=== PATIENT | male | born 1950 | race Caucasian/White ===

== ENCOUNTER → 2016-05-29 | Outpatient (CLI) | payer BC ==
[~2016-05-29] MED LIST: ADVIN25050 INH; ASPEC81 PO; FLV1 PO; MULT-589 PO; THM100 PO; TIOTCAP INH
--- NOTE | 2016-05-29 10:30 | DIAGNOSTIC IMAGING REPORT ---
CHEST 2 VIEWS ROUTINE CLINICAL HISTORY: Z00.00 Health [id number] Chronic obstructive pulmonary dis COMPARISON STUDY: 06/07/2013 FINDINGS: The patient appears hyperinflated. The heart is normal in size. There is no failure. There is no focal pulmonary consolidation. There are no significant pleural effusions.[ IMPRESSION: Emphysematous configuration of the chest. No acute findings. Electronically signed by: Sesar Huffman M.D. 05/29/2016 10:28 AM Dictated Date/Time: 05/29/2016 10:28 AM
[2016-05-29 11:15] LABS: BASO % 0.4 %; BASO ABS # 0.03 K/uL (0-0.2); COMPLETE YES; EOS % 1.1 %; HEMATOCRIT 42.8 % (42-52); IG% 0.1 %; LYMPH % 12.1 %; LYMPH ABS # 0.98 K/uL (1.2-3.4); MEAN CELL VOLUME 96.6 fL (80-100); MEAN CORPUSCULAR HEMOGLOBIN 33.4 pg (25-34); MEAN CORPUSCULAR HGB CONC 34.6 g/dl (32-36); MEAN PLATELET VOLUME 9.1 fL (7.4-10.4); MONO % 7.4 %; NEUT % 78.9 %; PLATELET COUNT 249 K/uL (130-400); RED BLOOD COUNT 4.43 M/uL (4.7-6.1); WHITE BLOOD COUNT 8.12 K/uL (4.8-10.8)
[2016-05-29 11:28] LABS: ALT/SGPT 23 U/L (12-78); AST/SGOT 15 U/L (15-37); BLOOD UREA NITROGEN 17 mg/dl (7-18); BUN/CREATININE RATIO 19.6 (10-20); CALCIUM 8.8 mg/dl (8.5-10.1); CARBON DIOXIDE 28 mmol/L (21-32); CHLORIDE 103 mmol/L (98-107); CREATININE 0.89 mg/dl (0.60-1.40); GLUCOSE 98 mg/dl (70-99); POTASSIUM 4.3 mmol/L (3.5-5.1); SODIUM 139 mmol/L (136-145)
[2016-05-29 11:31] LABS: ALB/GLOB RATIO 1.1 (0.9-2); ALKALINE PHOSPHATASE 64 U/L (45-117)
== END | disposition home or self-care (01) ==
LOC: C.RAD1850 10:08
PROVIDERS: ATTEND Internal Medicine Pulmonary Disease
DX: Z00.00 Encounter for general adult medical examination without abnormal findings (principal); J44.9 Chronic obstructive pulmonary disease, unspecified; I27.2 Other secondary pulmonary hypertension; I50.9 Heart failure, unspecified

== ENCOUNTER 2017-04-10 17:37 | Inpatient (IN) | payer OTHER ==
[~2017-04-10] VITALS: Ht 172.7 cm; Wt 55.5 kg
[2017-04-10] MEDS ORDERED: ASPIRIN 81 MG CHEW PO STA (17:53)
--- NOTE | 2017-04-10 18:25 | EMERGENCY ROOM VISIT NOTE ---
History Report prepared by Shaheedibsandip: Jan Roach Under the Supervision of: Dr. Deejay oCrdoba M.D. First contact with patient: 17:49 Chief Complaint: SHORTNESS OF BREATH Stated Complaint: SOB,LOWER EXTREMITY,SWELLING/EDEMA Nursing Triage Summary: Last few days pt developed BLE edema and shortness of breath. Hx cor pulmonale. History of Present Illness The patient is a 66 year old male who presents to the Emergency Room with complaints of resolved shortness of breath that began a couple of weeks ago. The patient states that he has a history of cor pulmonale. The patient states that over the last couple of weeks his shortness of breath worsened. He reports that he has been experiencing worsening bilateral lower extremity edema that began a couple of days ago. The patient is accompanied by his who states that the patient she noticed his legs worsened tonight, which cause her to bring him to the ED. The patient states that he has also been coughing more, which he reports is intermittently productive. He states he has also been experiencing diarrhea. He reports that since his symptoms have worsened, he started to wear oxygen at all times. He states that he is currently not short of breath. The patient states that his pulse ox is typically low. He denies fevers, chills, coughing up blood, nausea, vomiting, blood in his stools, hematuria, and recent travel. Source of History: patient Onset: a couple of days ago Position: other (global) Quality: other (global) Timing: resolved Associated Symptoms: + cough, + diarrhea, No fevers, No chills, No nausea, No vomiting, No melena, No hematochezia, No urinary symptoms Note: Associated symptoms: lower extremity swelling Review of Systems See HPI for pertinent positives and negatives. A total of ten systems were reviewed and were otherwise negative. Past Medical & Surgical Medical Problems: (1) Edema, pitting (2) No Known Active Medical Problems (3) Pitting edema Family History Cancer MOTHER Social History Smoking Status: Former Smoker Alcohol Use: occasionally Marital Status: Housing Status: lives with family Occupation Status: employed Current/Historical Medications Scheduled Aspirin (Aspirin Ec), 81 MG PO DAILY Budesonide/Formoterol Fumarate (Symbicort 160/4.5 Inhaler ), 2 PUFFS INH BID Folic Acid (Folvite), 1 MG PO QAM Home O2 Therapy (Oxygen), 1 LITER NA CONTINOUS Hydrochlorothiazide (Hydrochlorothiazide), 12.5 MG PO DAILY Multiple Vitamin (Daily Vadim), 1 TAB PO DAILY Tamsulosin Hcl (Flomax), 0.4 MG PO DAILY Tiotropium [place] (Spiriva Handihaler), 1 CAP INH DAILY Allergies Coded Allergies: No Known Allergies (Unverified , 06/06/13) Physical Exam Vital Signs Date Time Temp Pulse Resp B/P (MAP) Pulse Ox O2 Delivery O2 Flow Rate FiO2 04/10/17 22:11 109 20 105/69 96 Nasal Cannula 3.0 04/10/17 21:43 108 20 102/65 95 Nasal Cannula 3.0 04/10/17 21:03 108 20 109/62 97 Nasal Cannula 3.0 04/10/17 19:52 93 20 103/66 95 Nasal Cannula 3.0 04/10/17 18:56 106 20 95/63 98 Nasal Cannula 3.0 04/10/17 18:32 100 14 108/66 95 Nasal Cannula 3.0 04/10/17 18:07 96 04/10/17 17:40 98 Room Air 04/10/17 17:40 36.5 112 22 83/54 68 Nasal Cannula 1.0 Physical Exam GENERAL: Awake, alert, well-appearing, in no distress HENT: Normocephalic, Atraumatic. no hemotympanum bilaterally, sutherland sign negative bilaterally. Oropharynx unremarkable. EYES: Normal conjunctiva. Sclera non-icteric. PERRL bilaterally. EOMI bilaterally. NECK: Supple. No nuchal rigidity. FROM. No JVD. No C-spine tenderness. RESPIRATORY: Diminished breath sounds bilaterally. CARDIAC: Tachycardic, normal rhythm. Extremities warm and well perfused. Equal palpable radial pulses to the bilateral upper extremities. Equal palpable DP pulses to the bilateral lower extremities. ABDOMEN: Soft, non-distended. No tenderness to palpation. No rebound or guarding. No masses. Rovsig Negative. RECTAL: Deferred. MUSCULOSKELETAL: Chest examination reveals no tenderness. The back is symmetrical on inspection without obvious abnormality. There is no CVA tenderness to palpation. No joint edema. LOWER EXTREMITIES: 3+ edema pitting bilaterally. No discoloration. NEURO: Normal sensorium. No sensory or motor deficits noted. No pronator drift. No facial droop. No dysarthria. SKIN: No rash or jaundice noted. Medical Decision & Procedures ER Provider Diagnostic Interpretation: X-ray: Per my interpretation, radiologist review. CHEST ONE VIEW PORTABLE CLINICAL HISTORY: sob hypoxia COMPARISON STUDY: 02/02/2017 FINDINGS: Mild cardiomegaly. Emphysematous change. Calcified pleural plaque right midlung. No focal infiltrate. IMPRESSION: Emphysematous and chronic fibrotic change. Mild cardiomegaly. The above report was generated using voice recognition software. It may contain grammatical, syntax or spelling errors. Electronically signed by: Kevin Wellington M.D. 04/10/2017 6:50 PM Dictated Date/Time: 04/10/2017 6:49 PM Laboratory Results 04/10/17 18:25 Red Blood Count 4.35, Mean Corpuscular Volume 104.1, Mean Corpuscular Hemoglobin 34.5, Mean Corpuscular Hemoglobin Concent 33.1, Mean Platelet Volume 9.0, Neutrophils (%) (Auto) 79.6, Lymphocytes (%) (Auto) 12.0, Monocytes (%) ( Auto) 6.7, Eosinophils (%) (Auto) 1.0, Basophils (%) (Auto) 0.5, Neutrophils # ( Auto) 6.43, Lymphocytes # (Auto) 0.97, Monocytes # (Auto) 0.54, Eosinophils # ( Auto) 0.08, Basophils # (Auto) 0.04 04/10/17 18:25 Test 04/10/17 18:25 04/10/17 18:40 04/10/17 18:55 04/10/17 21:53 White Blood Count 8.08 K/uL (4.8-10.8) Red Blood Count 4.35 M/uL (4.7-6.1) Hemoglobin 15.0 g/dL (14.0-18.0) Hematocrit 45.3 % (42-52) Mean Corpuscular Volume 104.1 fL (80-100) Mean Corpuscular Hemoglobin 34.5 pg (25-34) Mean Corpuscular Hemoglobin Concent 33.1 g/dl (32-36) Platelet Count 285 K/uL (130-400) Mean Platelet Volume 9.0 fL (7.4-10.4) Neutrophils (%) (Auto) 79.6 % Lymphocytes (%) (Auto) 12.0 % Monocytes (%) (Auto) 6.7 % Eosinophils (%) (Auto) 1.0 % Basophils (%) (Auto) 0.5 % Neutrophils # (Auto) 6.43 K/uL (1.4-6.5) Lymphocytes # (Auto) 0.97 K/uL (1.2-3.4) Monocytes # (Auto) 0.54 K/uL (0.11-0.59) Eosinophils # (Auto) 0.08 K/uL (0-0.5) Basophils # (Auto) 0.04 K/uL (0-0.2) RDW Standard Deviation 54.7 fL (36.4-46.3) RDW Coefficient of Variation 14.2 % (11.5-14.5) Immature Granulocyte % (Auto) 0.2 % Immature Granulocyte # (Auto) 0.02 K/uL (0.00-0.02) Anion Gap 7.0 mmol/L (3-11) Est Creatinine Clear Calc Drug Dose 93.2 ml/min Estimated GFR () 111.4 Estimated GFR (Non- 96.1 BUN/Creatinine Ratio 15.8 (10-20) Calcium Level 8.2 mg/dl (8.5-10.1) Magnesium Level 1.6 mg/dl (1.8-2.4) Total Bilirubin 0.5 mg/dl (0.2-1) Aspartate Amino Transf (AST/SGOT) 25 U/L (15-37) Alanine Aminotransferase (ALT/SGPT) 61 U/L (12-78) Alkaline Phosphatase 88 U/L (45-117) Troponin I 0.048 ng/ml (0-0.045) Pro-B-Type Natriuretic Peptide 6327 pg/ml (0-900) Total Protein 6.3 gm/dl (6.4-8.2) Albumin 2.7 gm/dl (3.4-5.0) Globulin 3.6 gm/dl (2.5-4.0) Albumin/Globulin Ratio 0.7 (0.9-2) Influenza Type A Antigen Neg for Influ A (NEG) Influenza Type B Antigen Neg for Influ B (NEG) Arterial Blood pH 7.40 (7.35-7.45) Arterial Blood Partial Pressure CO2 55 mmHg (35-46) Arterial Blood Partial Pressure O2 82 mm/Hg (80-95) Arterial Blood HCO3 33 mmol/L (19-24) Arterial Blood Oxygen Saturation 95.7 % (90-95) Arterial Blood Base Excess 6.3 mEq/L (-9-1.8) Arterial Blood Gas Delivery 2L O2 Kai Test POS (POS) Laboratory results reviewed by me Medications Administered Medications (Trade) Dose Ordered Sig/Tomasa Route Start Time Stop Time Status Last Admin Dose Admin Aspirin (Aspirin Chew) 324 mg NOW STAT PO 04/10/17 17:53 04/10/17 17:56 DC 04/10/17 18:30 324 MG Furosemide 40 mg/ Albumin Human 54 ml @ 54 mls/hr TODAY@2300 IV 04/10/17 23:00 04/10/17 23:59 04/10/17 22:47 54 MLS/HR Potassium Chloride (Klor-Con M10) 20 meq STK-MED ONCE .ROUTE 04/10/17 22:17 04/10/17 22:18 DC 04/10/17 22:18 20 MEQ ECG Indication: SOB/dyspnea Rate (beats per minute): 97 Rhythm: sinus rhythm Findings: other (Baseline wander, Right axis deviation, no ST elevation or ST depression. QRS, QTC, and [place] are within normal limits) ED Course 175: The patient was evaluated in room B03B. A complete history and physical exam was performed. Patient was immediately placed on lunchroom monitor and had his oxygen increased to 4 L. 1952: I discussed the patients case with Dr. Abarca, [facility] Cardiology. He states he knows the patient and he is not compliant with his medications and continues to smoke. we Both agree troponin patient due to CHF exacerbation and not due to ischemia. Patient will be given first dose of Lasix and admitted for diuresis. No heparin will be given at this time per Tevin. He does not believe his symptoms are due to coronary ischemia. 1955: I reevaluated the patient and he is resting more comfortably. I updated him on his results and discussed his treatment plan. He agrees to the plan. 2034: I discussed the patients case with Dr. Alegre, [facility] Hospitalist. He understands the patients condition and agrees to accept the patient. The patient will be further evaluated. Medical Decision I discussed the patients case with Dr. Abarca, [facility] Cardiology. He states he knows the patient and he is not compliant with his medications and continues to smoke. we Both agree troponin patient due to CHF exacerbation and not due to ischemia. Patient will be given first dose of Lasix and admitted for diuresis. No heparin will be given at this time per Eaton. He does not believe his symptoms are due to coronary ischemia. He was admitted to the hospitalist service who will trend the troponin and continue diuresis Medication Reconcilliation Current Medication List: was personally reviewed by me Blood Pressure Screening Patient's blood pressure: Normal blood pressure Consults Time Called: 1952 Consulting Physician: Dr. Abarca, [facility] Cardiology Returned Call: 1952 I discussed the patients case with Dr. Abarca [facility] Card[facility]. He states he knows the patient and he is not compliant with his medications and continues to smoke. Both agree troponin due to CHF exacerbation. Patient will be given first dose of Lasix and admitted for diuresis. No heparin will be given at this time per [place]. He does not believe his symptoms are due to coronary ischemia. Additional Consults: Time Called: 2029 Consulted Physician: Dr. Alegre [facility] Hospitalist Returned Call: 2029 Additional Comments: I discussed the patients case with Dr. Alegre, [facility] Hospitalist. He understands the patients condition and agrees to accept the patient. The patient will be further evaluated. Impression Primary Impression: Hypoxia Additional Impression: CHF exacerbation Critical Care I have personally spent greater than 62 minutes of critical care time in the direct management of this patient. This includes bedside care, interpretation of diagnostic studies, and testing, discussion with consultants, patient, and family members, and other required patient management activities. This 62 minutes is in excess of all separately billable procedures. Scribe Attestation The scribe's documentation has been prepared under my direction and personally reviewed by me in its entirety. I confirm that the note above accurately reflects all work, treatment, procedures, and medical decision making performed by me. Departure Information Dispostion Being Evaluated By Hospitalist Referrals No Doctor, Assigned (PCP) Patient Instructions My [facility] Problem Qualifiers
[2017-04-10] MEDS ORDERED: SPRIN/30 INH (18:30)
[2017-04-10] MEDS ORDERED: FOLI1TAB8 PO (18:30)
[2017-04-10] MEDS ORDERED: OXGN (18:30)
[2017-04-10] MEDS ORDERED: HYDR12.55 PO (18:30)
[2017-04-10] MEDS ORDERED: SYMIN160 INH (18:30)
[2017-04-10] MEDS ORDERED: TAMS0.4C38 PO (18:30)
[2017-04-10] MEDS ORDERED: MULT-411 PO (18:30)
[2017-04-10] MEDS ORDERED: ASPI81TA28 PO (18:30)
[2017-04-10 18:37] LABS: BASO % 0.5 %; BASO ABS # 0.04 K/uL (0-0.2); EOS ABS # 0.08 K/uL (0-0.5); HEMATOCRIT 45.3 % (42-52); IG# 0.02 K/uL (0.00-0.02); LYMPH ABS # 0.97 K/uL (1.2-3.4); MEAN CELL VOLUME 104.1 fL (80-100); MEAN CORPUSCULAR HEMOGLOBIN 34.5 pg (25-34); MEAN CORPUSCULAR HGB CONC 33.1 g/dl (32-36); MONO % 6.7 %; MONO ABS # 0.54 K/uL (0.11-0.59); NEUT % 79.6 %; NEUT ABS # 6.43 K/uL (1.4-6.5); PLATELET COUNT 285 K/uL (130-400); RED CELL DISTRIBUTION WIDTH CV 14.2 % (11.5-14.5); RED CELL DISTRIBUTION WIDTH SD 54.7 fL (36.4-46.3); WHITE BLOOD COUNT 8.08 K/uL (4.8-10.8)
--- NOTE | 2017-04-10 18:51 | DIAGNOSTIC IMAGING REPORT ---
CHEST ONE VIEW PORTABLE CLINICAL HISTORY: sob hypoxia COMPARISON STUDY: 02/02/2017 FINDINGS: Mild cardiomegaly. Emphysematous change. Calcified pleural plaque right midlung. No focal infiltrate. IMPRESSION: Emphysematous and chronic fibrotic change. Mild cardiomegaly. The above report was generated using voice recognition software. It may contain grammatical, syntax or spelling errors. Electronically signed by: Kevin Wellington M.D. 04/10/2017 6:50 PM Dictated Date/Time: 04/10/2017 6:49 PM
[2017-04-10 18:55] LABS: ALBUMIN 2.7 gm/dl (3.4-5.0); CALCIUM 8.2 mg/dl (8.5-10.1); CREATININE 0.74 mg/dl (0.60-1.40); POTASSIUM 4.1 mmol/L (3.5-5.1)
[2017-04-10 19:11] LABS: TOTAL PROTEIN 6.3 gm/dl (6.4-8.2)
[2017-04-10 19:48] LABS: INFLUENZA B ANTIGEN Neg for Influ B (NEG)
--- NOTE | 2017-04-10 21:15 | History and Physical ---
History & Physical Date & Time of Service: Apr 10, 2017 at 21:01 Chief Complaint: Sob,Lower Extremity,Swelling/Edema Primary Care Physician: Jason Tamayo M.D. History of Present Illness Source: patient, family, hospital records Developed a cough and cold ~ 1 week ago. Concurrently started noticing worsened of swelling of bilateral lower extremities. Presented to the ED for assessment and was found to by hypoxic. Patient has a history of COPD but states compliance with his inhalers. From a breathing stand point, though he was told to keep oxygen on continuously at ~1L at baseline, he had "not been requiring it" for the last several weeks prior to his illness. He was diagnosed with cor pulmonale back in 2013, and states he has not had any exacerbation since then. He sees repatcher Dr. Abarca. Patient states he was advised to take HCTZ as needed for swelling. But he has been taking it for a few days, with no improvement of the swelling. Family admits to not being compliant with a low salt diet, as patient was not having issues with swelling. Otherwise patient has no other complaints. He denies CP, palpitations, heart racing. He denies dyspnea at rest, or change in exercise tolerance. However his notes that he does experience dyspnea coming from the car into the house - they attribute this to the cold weather. No fevers/chills. No claudication, ambulates independently. No weight gain or abdominal distension. Denies orthopnea or PND. Does not use CPAP or BiPAP, and claims he was never told he needed to. No issues with voiding or stooling. Past Medical/Surgical History Severe COPD Pulmonary HTN Family History Cancer MOTHER Reviewed: non-contributory Social History Smoking Status: Former Smoker (80 pack year history) Smokeless Tobacco Use: No Alcohol Use: Daily bears Drug Use: none Marital Status: Occupational Status: employed Immunizations History of Influenza Vaccine: No History of Tetanus Vaccine?: UPTD History of Pneumococcal: Yes History of Hepatitis B Vaccine: No Multi-Drug Resistant Organisms History of MDRO: No Allergies Coded Allergies: No Known Allergies (Unverified , 06/06/13) Home Medications Scheduled Aspirin (Aspirin Ec), 81 MG PO DAILY Budesonide/Formoterol Fumarate (Symbicort 160/4.5 Inhaler ), 2 PUFFS INH BID Folic Acid (Folvite), 1 MG PO QAM Home O2 Therapy (Oxygen), 1 LITER NA CONTINOUS Hydrochlorothiazide (Hydrochlorothiazide), 12.5 MG PO DAILY Multiple Vitamin (Daily Vadim), 1 TAB PO DAILY Tamsulosin Hcl (Flomax), 0.4 MG PO DAILY Tiotropium [place] (Spiriva Handihaler), 1 CAP INH DAILY Review of Systems ROS is unremarkable except as noted above. Physical Exam Vital Signs Date Time Temp Pulse Resp B/P (MAP) Pulse Ox O2 Delivery O2 Flow Rate FiO2 04/10/17 19:52 93 20 103/66 95 Nasal Cannula 3.0 04/10/17 18:56 106 20 95/63 98 Nasal Cannula 3.0 04/10/17 18:32 100 14 108/66 95 Nasal Cannula 3.0 04/10/17 18:07 96 04/10/17 17:40 98 Room Air 04/10/17 17:40 36.5 112 22 83/54 68 Nasal Cannula 1.0 General Appearance: WD/WN, no apparent distress Head: normocephalic, atraumatic Eyes: normal inspection ENT: hearing grossly normal Neck: supple, no adenopathy, no JVD Respiratory/Chest: lungs clear, normal breath sounds, no respiratory distress, no accessory muscle use Cardiovascular: regular rate, rhythm, no murmur, normal peripheral pulses Abdomen/GI: normal bowel sounds, non tender, soft Back: normal inspection, no CVA tenderness, + pertinent finding (no sacral edema) Extremities/Musculoskelatal: no calf tenderness, + pedal edema, + swelling Neurologic/Psych: alert, normal mood/affect, oriented x 3 Skin: warm/dry, no rash, + pertinent finding (2-3+ pitting edema to knees bilaterally) Diagnostics Laboratory Results Results Past 24 Hours Test 04/10/17 18:25 04/10/17 18:40 04/10/17 18:55 Range/Units White Blood Count 8.08 4.8-10.8 K/uL Red Blood Count 4.35 4.7-6.1 M/uL Hemoglobin 15.0 14.0-18.0 g/dL Hematocrit 45.3 42-52 % Mean Corpuscular Volume 104.1 80-100 fL Mean Corpuscular Hemoglobin 34.5 25-34 pg Mean Corpuscular Hemoglobin Concent 33.1 32-36 g/dl Platelet Count 285 130-400 K/uL Mean Platelet Volume 9.0 7.4-10.4 fL Neutrophils (%) (Auto) 79.6 % Lymphocytes (%) (Auto) 12.0 % Monocytes (%) (Auto) 6.7 % Eosinophils (%) (Auto) 1.0 % Basophils (%) (Auto) 0.5 % Neutrophils # (Auto) 6.43 1.4-6.5 K/uL Lymphocytes # (Auto) 0.97 1.2-3.4 K/uL Monocytes # (Auto) 0.54 0.11-0.59 K/uL Eosinophils # (Auto) 0.08 0-0.5 K/uL Basophils # (Auto) 0.04 0-0.2 K/uL RDW Standard Deviation 54.7 36.4-46.3 fL RDW Coefficient of Variation 14.2 11.5-14.5 % Immature Granulocyte % (Auto) 0.2 % Immature Granulocyte # (Auto) 0.02 0.00-0.02 K/uL Sodium Level 133 136-145 mmol/L Potassium Level 4.1 3.5-5.1 mmol/L Chloride Level 91 98-107 mmol/L Carbon Dioxide Level 35 21-32 mmol/L Anion Gap 7.0 3-11 mmol/L Blood Urea Nitrogen 12 7-18 mg/dl Creatinine 0.74 0.60-1.40 mg/dl Est Creatinine Clear Calc Drug Dose 93.2 ml/min Estimated GFR () 111.4 Estimated GFR (Non- 96.1 BUN/Creatinine Ratio 15.8 10-20 Random Glucose 97 70-99 mg/dl Lactic Acid Level 2.1 0.4-2.0 mmol/L Calcium Level 8.2 8.5-10.1 mg/dl Magnesium Level 1.6 1.8-2.4 mg/dl Total Bilirubin 0.5 0.2-1 mg/dl Aspartate Amino Transf (AST/SGOT) 25 15-37 U/L Alanine Aminotransferase (ALT/SGPT) 61 12-78 U/L Alkaline Phosphatase 88 45-117 U/L Troponin I 0.048 0-0.045 ng/ml Pro-B-Type Natriuretic Peptide 6327 0-900 pg/ml Total Protein 6.3 6.4-8.2 gm/dl Albumin 2.7 3.4-5.0 gm/dl Globulin 3.6 2.5-4.0 gm/dl Albumin/Globulin Ratio 0.7 0.9-2 Influenza Type A Antigen Neg for Influ A NEG Influenza Type B Antigen Neg for Influ B NEG Arterial Blood pH 7.40 7.35-7.45 Arterial Blood Partial Pressure CO2 55 35-46 mmHg Arterial Blood Partial Pressure O2 82 80-95 mm/Hg Arterial Blood HCO3 33 19-24 mmol/L Arterial Blood Oxygen Saturation 95.7 90-95 % Arterial Blood Base Excess 6.3 -9-1.8 mEq/L Arterial Blood Gas Delivery 2L O2 Kai Test POS POS Diagnostic Radiology CHEST ONE VIEW PORTABLE CLINICAL HISTORY: sob hypoxia COMPARISON STUDY: 02/02/2017 FINDINGS: Mild cardiomegaly. Emphysematous change. Calcified pleural plaque right midlung. No focal infiltrate. IMPRESSION: Emphysematous and chronic fibrotic change. Mild cardiomegaly. Impression Assessment and Plan 66 year old male with COPD and pulmonary hypertension admitted for hypoxia and bilateral lower extremity edema Severe COPD with acute on chronic hypoxia - possibly related to viral etiology, no evidence of fluid overload or PNA on CXR - ABG shows compensated pH with both respiratory acidosis and metabolic alkalosis - O2 via nasal cannula, wean as tolerated keeping sats at >88% - baseline 1L O2 - Continue inhalers: Spiriva and Symbicort Bilateral pitting edema - Lasix + albumin x 1 dose, then IV lasix 40mg daily - KCl 20mEq BID - Continue home HCTz - Compression stockings ordered - Low salt diet Pulmonary HTN/ Elevated trop - likely demand ischemia, given no EKG findings other than PACs - Trend troponin - ECHO ordered Hypomagnesium - Supplement Mg as needed and trend VTE - Lovenox SC q24h FULL CODE Attending addendum: I have physically seen this patient, have supervised the medical residents activities, and agree with the H&P unless as otherwise noted. Assessment and Plan: Acute on chronic respiratory failure with hypoxia/severe COPD with exacerbation/ acute CHF-- Continue nasal cannula oxygen, titrate to keep pulse ox greater than or equal to 91% COPD exacerbation-- Continue Spiriva and Symbicort Duonebs every 4 hours while awake and every 2 hours when necessary. Ex Acute CHF/elevated troponin/pulmonary hypertension-- The patient will be admitted to telemetry for serial cardiac enzymes, serial EKG's, cardiac rhythm monitoring and a 2-D echocardiogram with Dopplers. Albumin 25 g with Lasix 40 mg IV 1 tonight, then Lasix 40 mg IV every morning Klor-Con 20 mEq by mouth twice a day Serial BMP and magnesium levels Serial chest x-rays Level of Care Telemetry Advanced Directives Existing Advance Directive: No Existing Living Will: No Existing Power of Fire Prevention Captain: No Existing Health Care Proxy: No Resuscitation Status FULL RESUSCITATION VTE Prophylaxis VTE Risk Assessment Done? Y/N: Yes Given or contraindicated: Unfractionated heparin SQ Social Service Consult None Apply Resident Tracking Resident Involvement: Resident Care Provided Care Provided: Adult Hospital Medicine
[2017-04-10] MEDS ORDERED: POTASSIUM CHLORIDE 20 MEQ TABCR PO STA (21:53)
[2017-04-10] MEDS ORDERED: MAGNESIUM OXIDE 400 MG TAB PO ONE (21:53)
[2017-04-10] MEDS ORDERED: ONDANSETRON INJ 2 MG/ML 2 ML VIAL IV PRN (22:00)
[2017-04-10] MEDS ORDERED: POLYETHYLENE (MIRALAX) 17 GM PACK PO PRN (22:00)
[2017-04-10] MEDS ORDERED: ALUMINUM/MAGNESIUM/SIMETH (MAALOX MAX) 30 ML UDC PO PRN (22:00)
[2017-04-10] MEDS ORDERED: ACETAMINOPHEN 325 MG TAB PO PRN (22:00)
[2017-04-10] MEDS ORDERED: NITROGLYCERIN 0.4 MG SL PER TAB CHARGE SL PRN (22:00)
[2017-04-10] MEDS ORDERED: MAGNESIUM HYDROXIDE SUSP 30 ML UDC PO PRN (22:00)
[2017-04-10] MEDS ORDERED: POTASSIUM CHLORIDE 10 MEQ TABCR ONE (22:17)
[2017-04-10 22:40] VITALS: BP 112/70; PULSE 113; TEMP 36.4; O2SAT 91; Ht 172.7 cm; Wt 55.5 kg
[2017-04-10] MEDS ORDERED: ALBUMIN 25% 50 ML with FUROSEMIDE INJ 40 MG IV SCH ×2 (23:00)
[2017-04-11] VITALS (7 sets, daily range): BP systolic 107–125; BP diastolic 63–74; PULSE 96–109; TEMP 36.6–36.9; O2SAT 90–98
[2017-04-11 07:00] LABS: BASO % 0.7 %; BASO ABS # 0.06 K/uL (0-0.2); EOS % 1.6 %; EOS ABS # 0.13 K/uL (0-0.5); HEMATOCRIT 46.7 % (42-52); HEMOGLOBIN 15.2 g/dL (14.0-18.0); IG# 0.03 K/uL (0.00-0.02); LYMPH % 8.2 %; LYMPH ABS # 0.68 K/uL (1.2-3.4); MEAN CELL VOLUME 106.1 fL (80-100); MEAN CORPUSCULAR HEMOGLOBIN 34.5 pg (25-34); MEAN CORPUSCULAR HGB CONC 32.5 g/dl (32-36); MEAN PLATELET VOLUME 9.1 fL (7.4-10.4); MONO % 9.7 %; MONO ABS # 0.81 K/uL (0.11-0.59); NEUT % 79.4 %; NEUT ABS # 6.61 K/uL (1.4-6.5); PLATELET COUNT 290 K/uL (130-400); RED CELL DISTRIBUTION WIDTH CV 14.3 % (11.5-14.5); RED CELL DISTRIBUTION WIDTH SD 55.5 fL (36.4-46.3); WHITE BLOOD COUNT 8.32 K/uL (4.8-10.8)
[2017-04-11 07:33] LABS: ALBUMIN 2.8 gm/dl (3.4-5.0); CALCIUM 8.1 mg/dl (8.5-10.1); CREATININE 0.91 mg/dl (0.60-1.40); POTASSIUM 4.3 mmol/L (3.5-5.1)
[2017-04-11 07:36] LABS: PHOSPHORUS 3.5 mg/dl (2.5-4.9); TOTAL PROTEIN 6.2 gm/dl (6.4-8.2)
[2017-04-11] MEDS: BUDESONIDE/FORMOTEROL FUMARATE 160/4.5 60 PUFFS/INHALER INH SCH ×2 (08:14→19:52)
[2017-04-11] MEDS: TIOTROPIUM BROMIDE 5 PUFF/90 MCG INH INH SCH (08:15)
[2017-04-11] MEDS: ASPIRIN 81 MG ECTAB PO SCH (08:16)
[2017-04-11] MEDS: HYDROCHLOROTHIAZIDE 25 MG TAB PO SCH (08:16)
[2017-04-11] MEDS: TAMSULOSIN HCL 0.4 MG CAP PO SCH (08:16)
[2017-04-11] MEDS: POTASSIUM CHLORIDE 20 MEQ TABCR PO SCH ×2 (08:16→19:53)
[2017-04-11] MEDS: MULTIVITAMIN TAB PO SCH (08:17)
[2017-04-11] MEDS: MAGNESIUM OXIDE 400 MG TAB PO SCH ×2 (08:18→19:53)
[2017-04-11] MEDS ORDERED: HEPARIN SOD 5000 UNIT/0.5 ML CARP SQ SCH (09:00)
[2017-04-11] MEDS ORDERED: FUROSEMIDE INJ 40 MG in SYRINGE 0 ML IV SCH (09:00)
[2017-04-11] MEDS: ENOXAPARIN 40 MG/0.4 ML SYR SC SCH (09:18)
--- NOTE | 2017-04-11 14:11 | ECHOCARDIOGRAM REPORT ---
*NOTICE TO RECEIVING [facility] This information is strictly Confidential and protected under [place] law. [place] law prohibits you from making any further disclosure of this information unless further disclosure is expressly permitted by the written consent of the person to whom it pertains or is authorized by law. A general authorization for the release of medical or other information is not sufficient for this purpose. Hospital accepts no responsibility if the information is made available to any other person, INCLUDING THE PATIENT. Interpretation Summary * Name: GERMAN LOZANO Study Date: 04/11/2017 06:38 AM BP: 125/73 mmHg * Patient Location: C.2T\S\S239\S\2 HR: 96 * : 1950 (M/d/yyyy) Gender: Male Height: 70 in * Age: 66 yrs Ethnicity: [place] Weight: 147 lb * Ordering Physician: Ashley Canchola. * Referring Physician: Self, Referred * Performed By: Linda Gerardo RDCS * * Reason For Study: CHF * BSA: 1.8 m2 * -- Conclusions -- * Left ventricular systolic function is normal. * No regional wall motion abnormalities noted. * Ejection Fraction = 60-65%. * The right ventricle is severely dilated. * Flattened septum is consistent with RV pressure/volume overload. * There is moderate tricuspid regurgitation. * Right ventricular systolic pressure is elevated at >60mmHg. * Dilated inferior vena cava with reduced collapsability with sniff indicates an elevated right atrial pressure of 15 mmHg Procedure Details * A complete two-dimensional transthoracic echocardiogram was performed (2D, M-mode, Doppler and color flow Doppler). Left Ventricle * The left ventricle is normal in size. * There is normal left ventricular wall thickness. * Ejection Fraction = 60-65%. * Left ventricular systolic function is normal. * No regional wall motion abnormalities noted. * Flattened septum is consistent with RV pressure/volume overload. Right Ventricle * The right ventricle is severely dilated. * The right ventricular free wall is thin. * The right ventricular systolic function is normal as assessed by tricuspid annular plane systolic excursion (TAPSE) (normal >1.5 cm). Atria * The left atrial size is normal. * The right atrium is moderate to severely dilated. * No ASD detected; PFO is not assessed. Mitral Valve * The mitral valve anatomy is normal. * There is no mitral valve stenosis. * There is mild mitral regurgitation. Tricuspid Valve * The tricuspid valve anatomy is normal. * There is moderate tricuspid regurgitation. * Right ventricular systolic pressure is elevated at >60mmHg. Aortic Valve * The aortic valve is normal in structure and function. * No hemodynamically significant valvular aortic stenosis. * There is no significant aortic regurgitation. Pulmonic Valve * The pulmonic valve is not well visualized. Great Vessels * The aortic root is normal size. * The pulmonary is not well visualized. Pericardium/Pleural * There is no pericardial effusion. Great Vessels * Dilated inferior vena cava with reduced collapsability with sniff indicates an elevated right atrial pressure of 15 mmHg MMode 2D Measurements and Calculations IVSd 0.79 cm IVSs 0.95 cm LVIDd 4.2 cm LVIDs 3.1 cm LVPWd 0.95 cm LVPWs 1.6 cm IVS/LVPW 0.83 FS 26.2 % EDV(Teich) 78.0 ml ESV(Teich) 37.6 ml EF(Teich) 51.8 % EDV(cubed) 73.4 ml ESV(cubed) 29.5 ml EF(cubed) 59.9 % % IVS thick 19.8 % % LVPW thick 68.3 % LV mass(C)d 113.0 grams LV mass(C)dI 61.7 grams/m\S\2 LV mass(C)s 125.1 grams LV mass(C)sI 68.3 grams/m\S\2 SV(Teich) 40.4 ml SI(Teich) 22.1 ml/m\S\2 SV(cubed) 43.9 ml SI(cubed) 24.0 ml/m\S\2 Ao root diam 3.7 cm Ao root area 10.6 cm\S\2 LA dimension 3.3 cm LA/Ao 0.89 LVAd ap4 24.6 cm\S\2 LVLd ap4 7.6 cm EDV(MOD-sp4) 65.4 ml EDV(sp4-el) 67.1 ml LVAs ap4 15.7 cm\S\2 LVLs ap4 6.6 cm ESV(MOD-sp4) 31.5 ml ESV(sp4-el) 31.5 ml EF(MOD-sp4) 51.8 % EF(sp4-el) 53.1 % LVAd ap2 25.0 cm\S\2 LVLd ap2 7.7 cm EDV(MOD-sp2) 68.8 ml EDV(sp2-el) 69.0 ml LVAs ap2 15.0 cm\S\2 LVLs ap2 5.9 cm ESV(MOD-sp2) 32.2 ml ESV(sp2-el) 32.5 ml EF(MOD-sp2) 53.3 % EF(sp2-el) 52.8 % LVLd %diff 0.55 % EDV(MOD-bp) 67.0 ml LVLs %diff -13.12 % ESV(MOD-bp) 34.0 ml EF(MOD-bp) 49.2 % SV(MOD-sp4) 33.8 ml SI(MOD-sp4) 18.5 ml/m\S\2 SV(MOD-sp2) 36.7 ml SI(MOD-sp2) 20.0 ml/m\S\2 SV(MOD-bp) 33.0 ml SI(MOD-bp) 18.0 ml/m\S\2 SV(sp4-el) 35.6 ml SI(sp4-el) 19.5 ml/m\S\2 SV(sp2-el) 36.4 ml SI(sp2-el) 19.9 ml/m\S\2 Doppler Measurements and Calculations MV E max guicho 62.6 cm/sec MV A max guicho 80.2 cm/sec MV E/A 0.78 MV dec time 0.23 sec Ao V2 max 108.7 cm/sec Ao max PG 4.7 mmHg Ao max PG (full) 1.6 mmHg LV V1 max PG 3.1 mmHg LV V1 max 88.0 cm/sec TR max guicho 357.2 cm/sec
--- NOTE | 2017-04-11 17:04 | Progress Note ---
Subjective Date of Service: Apr 11, 2017. Subjective Pt evaluation today including: conversation w/ patient, physical exam, chart review, lab review, review of studies, review of inpatient medication list feeling about his baseline swelling better no significant [place] but also hasn't relaly walked around much outpt records reviewed - old PFTs show SEVERE COPD w FEV1 ~0.78L in 2016. notes that he's not been wearing his oxygen all the time no other new sx, and again genearlly feels better again Problem List Medical Problems: (1) CHF exacerbation Status: Acute (2) Hypoxia Status: Acute Review of Systems all other ROS otherwise negative except for as above Objective Vital Signs Date Time Temp Pulse Resp B/P (MAP) Pulse Ox O2 Delivery O2 Flow Rate FiO2 04/11/17 16:00 Nasal Cannula 3.0 04/11/17 15:23 36.6 98 20 107/63 (78) 94 Nasal Cannula 3.0 04/11/17 12:00 Nasal Cannula 3.0 04/11/17 10:51 36.7 99 18 114/67 (83) 94 Nasal Cannula 2.0 04/11/17 08:00 Nasal Cannula 3.0 04/11/17 07:17 36.9 96 17 125/73 (90) 90 Nasal Cannula 3.0 04/11/17 04:00 Nasal Cannula 3.0 04/11/17 03:59 36.7 100 18 108/67 (81) 97 Room Air 04/10/17 23:59 Nasal Cannula 3.0 04/10/17 22:40 36.4 113 23 112/70 91 Nasal Cannula 3.0 04/10/17 22:11 109 20 105/69 96 Nasal Cannula 3.0 04/10/17 21:43 108 20 102/65 95 Nasal Cannula 3.0 04/10/17 21:03 108 20 109/62 97 Nasal Cannula 3.0 04/10/17 19:52 93 20 103/66 95 Nasal Cannula 3.0 04/10/17 18:56 106 20 95/63 98 Nasal Cannula 3.0 04/10/17 18:32 100 14 108/66 95 Nasal Cannula 3.0 04/10/17 18:07 96 04/10/17 17:40 98 Room Air 04/10/17 17:40 36.5 112 22 83/54 68 Nasal Cannula 1.0 Physical Exam General Appearance: no apparent distress Eyes: EOMI ENT: hearing grossly normal Neck: trachea midline Respiratory/Chest: no respiratory distress, no accessory muscle use, + decreased breath sounds (no r/r/w good effort) Extremities: normal range of motion 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, alert, normal mood/affect Skin: normal color, warm/dry Laboratory Results Last 24 Hours Test 04/10/17 18:25 04/10/17 18:40 04/10/17 18:55 04/10/17 23:03 White Blood Count 8.08 K/uL Red Blood Count 4.35 M/uL Hemoglobin 15.0 g/dL Hematocrit 45.3 % Mean Corpuscular Volume 104.1 fL Mean Corpuscular Hemoglobin 34.5 pg Mean Corpuscular Hemoglobin Concent 33.1 g/dl Platelet Count 285 K/uL Mean Platelet Volume 9.0 fL Neutrophils (%) (Auto) 79.6 % Lymphocytes (%) (Auto) 12.0 % Monocytes (%) (Auto) 6.7 % Eosinophils (%) (Auto) 1.0 % Basophils (%) (Auto) 0.5 % Neutrophils # (Auto) 6.43 K/uL Lymphocytes # (Auto) 0.97 K/uL Monocytes # (Auto) 0.54 K/uL Eosinophils # (Auto) 0.08 K/uL Basophils # (Auto) 0.04 K/uL RDW Standard Deviation 54.7 fL RDW Coefficient of Variation 14.2 % Immature Granulocyte % (Auto) 0.2 % Immature Granulocyte # (Auto) 0.02 K/uL Sodium Level 133 mmol/L Potassium Level 4.1 mmol/L Chloride Level 91 mmol/L Carbon Dioxide Level 35 mmol/L Anion Gap 7.0 mmol/L Blood Urea Nitrogen 12 mg/dl Creatinine 0.74 mg/dl Est Creatinine Clear Calc Drug Dose 93.2 ml/min Estimated GFR () 111.4 Estimated GFR (Non- 96.1 BUN/Creatinine Ratio 15.8 Random Glucose 97 mg/dl Lactic Acid Level 2.1 mmol/L 0.8 mmol/L Calcium Level 8.2 mg/dl Magnesium Level 1.6 mg/dl Total Bilirubin 0.5 mg/dl Aspartate Amino Transf (AST/SGOT) 25 U/L Alanine Aminotransferase (ALT/SGPT) 61 U/L Alkaline Phosphatase 88 U/L Troponin I 0.048 ng/ml Pro-B-Type Natriuretic Peptide 6327 pg/ml Total Protein 6.3 gm/dl Albumin 2.7 gm/dl Globulin 3.6 gm/dl Albumin/Globulin Ratio 0.7 Influenza Type A Antigen Neg for Influ A Influenza Type B Antigen Neg for Influ B Arterial Blood pH 7.40 Arterial Blood Partial Pressure CO2 55 mmHg Arterial Blood Partial Pressure O2 82 mm/Hg Arterial Blood HCO3 33 mmol/L Arterial Blood Oxygen Saturation 95.7 % Arterial Blood Base Excess 6.3 mEq/L Arterial Blood Gas Delivery 2L O2 Kai Test POS Test 04/11/17 02:18 04/11/17 06:29 04/11/17 10:32 Troponin I 0.058 ng/ml 0.041 ng/ml White Blood Count 8.32 K/uL Red Blood Count 4.40 M/uL Hemoglobin 15.2 g/dL Hematocrit 46.7 % Mean Corpuscular Volume 106.1 fL Mean Corpuscular Hemoglobin 34.5 pg Mean Corpuscular Hemoglobin Concent 32.5 g/dl Platelet Count 290 K/uL Mean Platelet Volume 9.1 fL Neutrophils (%) (Auto) 79.4 % Lymphocytes (%) (Auto) 8.2 % Monocytes (%) (Auto) 9.7 % Eosinophils (%) (Auto) 1.6 % Basophils (%) (Auto) 0.7 % Neutrophils # (Auto) 6.61 K/uL Lymphocytes # (Auto) 0.68 K/uL Monocytes # (Auto) 0.81 K/uL Eosinophils # (Auto) 0.13 K/uL Basophils # (Auto) 0.06 K/uL RDW Standard Deviation 55.5 fL RDW Coefficient of Variation 14.3 % Immature Granulocyte % (Auto) 0.4 % Immature Granulocyte # (Auto) 0.03 K/uL Prothrombin Time 10.9 SECONDS Prothromb Time International Ratio 1.0 Sodium Level 137 mmol/L Potassium Level 4.3 mmol/L Chloride Level 91 mmol/L Carbon Dioxide Level 42 mmol/L Anion Gap 4.0 mmol/L Blood Urea Nitrogen 10 mg/dl Creatinine 0.91 mg/dl Est Creatinine Clear Calc Drug Dose 70.8 ml/min Estimated GFR () 101.4 Estimated GFR (Non- 87.5 BUN/Creatinine Ratio 11.2 Random Glucose 96 mg/dl Calcium Level 8.1 mg/dl Phosphorus Level 3.5 mg/dl Magnesium Level 1.8 mg/dl Total Bilirubin 0.7 mg/dl Aspartate Amino Transf (AST/SGOT) 26 U/L Alanine Aminotransferase (ALT/SGPT) 55 U/L Alkaline Phosphatase 84 U/L Total Protein 6.2 gm/dl Albumin 2.8 gm/dl Globulin 3.4 gm/dl Albumin/Globulin Ratio 0.8 Assessment and Plan Severe COPD with acute on chronic hypoxia - strongly suspect due to SEVERE baseline illness and not using oxygen - ABG shows compensated pH with both respiratory acidosis and metabolic alkalosis - O2 all the time emphasized to pt - Continue inhalers: Spiriva and Symbicort - outpt pulmonary f/u re ?other treatments for the pulmonary HTN aspect of this - nothign requiring acute treatment as it appears fairly clear that the decompensation leading to his hospitalization was that he wasn't using oxygen that appears to be clearly necessary Bilateral pitting edema - improved - lasix induced a bit of a contraction alkalosis - discussed that with severity of pulmonary HTN, likely not using O2 (which can vasodilate pulmonaries) led to R heart strain/failure - led to the fluid in his legs. Na intake possibly contributory as well, but suspect not wearing O2 was the single most relevant factor - no further lasix Pulmonary HTN/ Elevated trop - mild demand ischemia, given no EKG findings other than PACs - Trend troponin - ECHO without RWMA metabolic alkalosis -baseline as compensatory for chronic respiratory acidosis; acute appearing to be contraction alkalosis from diuretics severe pulmonary HTN -appearing due to his severe COPD - O2 as above; likely pulmonary HTN and lack of O2 was a big factor that led to his leg swelling VTE proph - Lovenox SC q24h dispo - stable -- move to med surg and increase activity. as long as able to ambulate without significant dyspnea then home tomorrow
[2017-04-12] VITALS (7 sets, daily range): BP systolic 104–114; BP diastolic 63–78; PULSE 90–113; TEMP 36.6–37.1; O2SAT 91–94
[2017-04-12] MEDS: BUDESONIDE/FORMOTEROL FUMARATE 160/4.5 60 PUFFS/INHALER INH SCH ×2 (08:18→21:03)
[2017-04-12] MEDS: POTASSIUM CHLORIDE 20 MEQ TABCR PO SCH ×2 (08:19→21:04)
[2017-04-12] MEDS: TIOTROPIUM BROMIDE 5 PUFF/90 MCG INH INH SCH (08:19)
[2017-04-12] MEDS: MULTIVITAMIN TAB PO SCH (08:19)
[2017-04-12] MEDS: MAGNESIUM OXIDE 400 MG TAB PO SCH ×2 (08:19→21:03)
[2017-04-12] MEDS: ASPIRIN 81 MG ECTAB PO SCH (08:19)
[2017-04-12] MEDS: TAMSULOSIN HCL 0.4 MG CAP PO SCH (08:20)
[2017-04-12] MEDS: HYDROCHLOROTHIAZIDE 25 MG TAB PO SCH (08:20)
[2017-04-12] MEDS: ENOXAPARIN 40 MG/0.4 ML SYR SC SCH (08:21)
[2017-04-12 09:41] LABS: CALCIUM 8.6 mg/dl (8.5-10.1); CREATININE 0.94 mg/dl (0.60-1.40)
[2017-04-12] MEDS ORDERED: GLUCAGON FOR INJ 1 MG VIAL SQ PRN (11:00)
[2017-04-12] MEDS ORDERED: DEXTROSE 50% 50 ML SYR IV PRN (11:00)
[2017-04-12] MEDS ORDERED: GLUCOSE 40% GEL 15 GM TUBE PO PRN (11:00)
[2017-04-12] MEDS: INSULIN ASPART 100 UNITS/ML 3 ML PEN SC SCH ×3 (11:00→21:09)
[2017-04-12] MEDS ORDERED: GLUCOSE 10 TABS/TUBE PO PRN (11:00)
[2017-04-12] MEDS ORDERED: ALBUT/IPRATROP 3MG/0.5MG NEB 3 ML VIAL INH PRN (11:15)
[2017-04-12] MEDS: ALBUT/IPRATROP 3MG/0.5MG NEB 3 ML VIAL INH SCH ×3 (11:41→19:37)
--- NOTE | 2017-04-12 11:47 | DIAGNOSTIC IMAGING REPORT ---
CHEST 2 VIEWS ROUTINE CLINICAL HISTORY: sob, increased O2 needs, inspiratory wheezes dyspnea COMPARISON STUDY: 04/10/2017 FINDINGS: Slight increase in bronchovascular prominence throughout both hemithoraces. Baseline emphysematous and chronic fibrotic change. IMPRESSION: Pulmonary vascular congestion superimposed upon emphysematous change. Findings are slightly progressive compared to the prior study. The above report was generated using voice recognition software. It may contain grammatical, syntax or spelling errors. Electronically signed by: Kevin Wellington M.D. 04/12/2017 11:45 AM Dictated Date/Time: 04/12/2017 11:30 AM
[2017-04-12 12:05] LABS: HEMOGLOBIN A1C 5.7 % (4.5-5.6)
[2017-04-12] MEDS: METHYLPREDNISOLONE IV 60 MG in SYRINGE 0 ML IV SCH ×2 (12:12→20:13)
[2017-04-12] MEDS ORDERED: FUROSEMIDE INJ 40 MG in SYRINGE 0 ML IV ONE (13:30)
--- NOTE | 2017-04-12 13:52 | Hospitalist Progress Note ---
Hospitalist Progress Note Date of Service Apr 12, 2017. Subjective Pt evaluation today including: conversation w/ patient, physical exam, chart review, lab review, review of inpatient medication list Voiding: no voiding problems Mr. Zelaya continues to be short of breath. This morning he was requiring 4L NC. He has a mild cough, non productive. ROS Constitutional: no chills, aches, sweats or fever Respiratory: see HPI Cardiac: no chest pain, palpitations, edema, orthopnea or lightheadedness GI: no abdominal pain, nausea, vomiting, diarrhea or constipation : no dysuria or hesitancy Extremities: no joint pain or weakness Skin: no rash All other systems reviewed and negative Medications Medications Administered Medications (Trade) Dose Ordered Sig/Tomasa Route Start Time Stop Time Status Last Admin Dose Admin Aspirin (Aspirin Chew) 324 mg NOW STAT PO 04/10/17 17:53 04/10/17 17:56 DC 04/10/17 18:30 324 MG Enoxaparin Sodium (Lovenox Inj) 40 mg Q24H SC 04/11/17 09:00 05/11/17 08:59 04/12/17 08:21 40 MG Aspirin (Ecotrin Tab) 81 mg QAM PO 04/11/17 09:00 05/11/17 08:59 04/12/17 08:19 81 MG Furosemide 40 mg/ Syringe 4 ml @ 4 mls/min QAM IV 04/11/17 09:00 04/11/17 09:00 DC 04/11/17 08:17 4 MLS/MIN Furosemide 40 mg/ Albumin Human 54 ml @ 54 mls/hr TODAY@2300 IV 04/10/17 23:00 04/10/17 23:59 DC 04/10/17 22:47 54 MLS/HR Magnesium Oxide (Mag-Ox Tab) 400 mg BID PO 04/11/17 09:00 05/11/17 08:59 04/12/17 08:19 400 MG Magnesium Oxide (Mag-Ox Tab) 400 mg 2153 ONCE PO 04/10/17 21:53 04/10/17 22:57 DC 04/10/17 23:31 400 MG Potassium Chloride (Klor-Con Tab) 20 meq BID PO 04/11/17 09:00 05/11/17 08:59 04/12/17 08:19 20 MEQ Budesonide/ Formoterol Fumarate (Symbicort 160/ 4.5 Inh) 2 puffs BID INH 04/11/17 09:00 05/11/17 08:59 04/12/17 08:18 2 PUFFS Folic Acid (Folvite Tab) 1 mg QAM PO 04/11/17 09:00 05/11/17 08:59 04/12/17 08:20 1 MG Multivitamins (Multivitamin Tab) 1 tab DAILY PO 04/11/17 09:00 05/11/17 08:59 04/12/17 08:19 1 TAB Tamsulosin HCl (Flomax Cap) 0.4 mg DAILY PO 04/11/17 09:00 05/11/17 08:59 04/12/17 08:20 0.4 MG Tiotropium [place] (Spiriva Handihaler Inhaler) 1 puff DAILY INH 04/11/17 09:00 05/11/17 08:59 04/12/17 08:19 1 PUFF Hydrochlorothiazide (Hydrochlorothiazide Tab) 12.5 mg DAILY PO 04/11/17 09:00 05/11/17 08:59 04/12/17 08:20 12.5 MG Potassium Chloride (Klor-Con M10) 20 meq STK-MED ONCE .ROUTE 04/10/17 22:17 04/10/17 22:18 DC 04/10/17 22:18 20 MEQ Methylprednisolone Sodium Succinate 60 mg/Syringe 0.96 ml @ 1.5 mls/min Q8H IV 04/12/17 12:00 05/12/17 11:59 04/12/17 12:12 1.5 MLS/MIN Objective Vital Signs Date Time Temp Pulse Resp B/P (MAP) Pulse Ox O2 Delivery O2 Flow Rate FiO2 04/12/17 11:41 90 16 94 Nasal Cannula 2.0 04/12/17 08:10 Nasal Cannula 3.0 04/12/17 07:27 36.6 95 18 112/78 (89) 94 Nasal Cannula 2.0 04/12/17 00:00 Nasal Cannula 3.0 04/11/17 22:54 36.9 108 18 114/74 (87) 94 Nasal Cannula 2.0 04/11/17 20:00 Nasal Cannula 3.0 04/11/17 18:00 36.8 109 19 109/69 (82) 98 Nasal Cannula 2.0 04/11/17 17:39 36.6 98 20 94 3.0 04/11/17 16:00 Nasal Cannula 3.0 04/11/17 15:23 36.6 98 20 107/63 (78) 94 Nasal Cannula 3.0 Physical Exam Notes: General: no distress Eyes: normal inspection, PERLL Respiratory: chest non tender, inspiratory/expiratory wheezes throughout lung king, no respiratory distress, no accessory muscle use Cardiac: regular rate and rhythm, no rub or gallop, no murmur, +1 pitting edema LE, no jvd GI/: active bowel sounds, no abd pain or tenderness, soft, non distended Extremities: normal range of motion, normal strength, non tender Neuro/Psych: alert and oriented x 3, normal mood and affect Skin: normal color, dry Laboratory Results Last 24 Hours Test 04/11/17 18:26 04/12/17 08:52 04/12/17 11:05 04/12/17 11:16 Troponin I 0.030 ng/ml Sodium Level 132 mmol/L Potassium Level 4.0 mmol/L Chloride Level 87 mmol/L Carbon Dioxide Level 45 mmol/L Anion Gap 0.0 mmol/L Blood Urea Nitrogen 9 mg/dl Creatinine 0.94 mg/dl Est Creatinine Clear Calc Drug Dose 63.7 ml/min Estimated GFR () 96.8 Estimated GFR (Non- 83.6 BUN/Creatinine Ratio 10.0 Random Glucose 238 mg/dl Calcium Level 8.6 mg/dl Bedside Glucose 127 mg/dl Arterial Blood pH 7.43 Arterial Blood Partial Pressure CO2 66 mmHg Arterial Blood Partial Pressure O2 84 mm/Hg Arterial Blood HCO3 43 mmol/L Arterial Blood Oxygen Saturation 96.2 % Arterial Blood Base Excess 14.6 mEq/L Arterial Blood Gas Delivery 4L Kai Test POS Estimated Average Glucose 117 mg/dl Hemoglobin A1c 5.7 % Assessment and Plan Mr. Zelaya is a 67 year old man here with COPD and pulmonary htn Severe COPD with acute on chronic hypoxia - ABG shows compensated pH with both respiratory acidosis and metabolic alkalosis - Continue inhalers: Spiriva and Symbicort - given increased need for O2 and inspiratory/expiratory wheezing throughout, cxr ordered which showed continued pulm congestion and abg showed increased CO2 retention - lasix 40 mg and daily, solumedrol 60 mg tid, duonebs qid, Bilateral pitting edema - improved - lasix induced a bit of a contraction alkalosis - restarted today at once daily given respiratory status - patient apparently not compliant at home with oxygen or sodium intake - continue education to encourage compliance at home. Pulmonary HTN/ Elevated trop - mild demand ischemia, given no EKG findings other than PACs - Trop peaked at .058 and trends down - ECHO without RWMA metabolic alkalosis -baseline as compensatory for chronic respiratory acidosis; acute appearing to be contraction alkalosis from diuretics - continue to monitor severe pulmonary HTN -appearing due to his severe COPD - O2 as above; likely pulmonary HTN and lack of O2 was a big factor that led to his leg swelling VTE proph - Lovenox SC q24h
--- NOTE | 2017-04-12 18:22 | PULMONARY CONSULTATION ---
DATE OF CONSULTATION: 04/12/2017 PULMONARY MEDICINE CONSULTATION REASON FOR CONSULTATION: COPD/pulmonary hypertension. HISTORY OF PRESENT ILLNESS: A 67-year-old white male with severe COPD and a longstanding [id number] smoking history, having quit 4 years ago and a former patient of Dr. Morin in the clinic was admitted onto the hospitalist service by Dr. Ashley Canchola. The patient's primary care physician is Dr. Jason Tamayo. The patient states his bilateral lower extremity edema had gotten worse and he was more and more short of breath. His inhalers were not helping him. He had been on 2 liters of oxygen during the day and 1 liter at night. He recently underwent stem cell therapy at the [facility] in [place]. This constituted in and out of pocket expense of $7500 on 2 occasions. He feels that treatments have helped him any and he was also advised not to take more than 1 liter of oxygen nocturnally. He claims now he feels he is getting too much oxygen as well. He has been diagnosed with cor pulmonale dating back to 2013 and is also sees Dr. Abarca. Echocardiogram has shown right ventricular PA systolic pressures estimated greater than 70 mmHg with normal LV function. Dr. Camacho saw the patient in 2013, notes the patient began to feel dyspneic in 2004 and was diagnosed with pulmonary hypertension at that time. He has been on Spiriva in the past and his FEV1 in 2002 hovered around 1.05 liters. The patient has been on continuous oxygen for several years. He has a history of severe COPD with pulmonary hypertension and increasing pedal edema. he was seen by Dr. Abarca in the past and in 2013, his PA systolic pressures were estimated at 45 to 55 mmHg. Most of his symptoms were cor pulmonale. He advised against the use of digoxin, at that time. PHYSICAL EXAMINATION: GENERAL: Currently, well-developed, thin, cachectic white male, appearing older than stated age who just returned from the bathroom and appears quite dyspneic, exhibiting pursed lip breathing. VITAL SIGNS: Temperature 37, pulse 101 and regular, respiratory rate 16, pulse oximetry 92% on 2 liters. SKIN: Warm and dry. HEENT: Atraumatic, normocephalic, PERRLA, EOMI. Conjunctivae pale. Sclerae nonicteric. Fundi poorly visualized. NECK: Neck veins not distended at 45 degrees. No adenopathy in the supra or infraclavicular areas. LUNGS: Scattered wheeze, left base, otherwise distant P&A. CARDIAC EXAM: Regular rate and rhythm. I do not appreciate a gallop. Sinus tachycardia at loud P2. ABDOMEN: Soft, scaphoid. EXTREMITIES: 1+ to 2+ pitting edema bilaterally. NEUROLOGIC: Intact. No lateralizing signs. Currently, patient is on 4 liters reportedly of oxygen via nasal cannula, IV Lasix has been discontinued. He has been kept on Symbicort therapy and Spiriva HandiHaler along with IV methylprednisolone. He is on subQ Lovenox prophylactically and is not on antibiotic therapy. IMAGING DATA: Chest x-ray today showed an increase in bronchovascular prominence throughout both hemithoraces, compared to 04/27/2017 with emphysematous changes and chronic fibrotic changes noted. CTA in 2013 showed no evidence of pulmonary thromboembolic disease but advanced emphysema and large right and moderate left pleural effusions with dense right lower lobe consolidation noted, that has cleared. OVERALL ASSESSMENT: A 67-year-old with severe end-stage chronic obstructive pulmonary disease, O2 dependent with cor pulmonale and severe pulmonary hypertension, admitted with an acute exacerbation with an element of congestive heart failure and perhaps a lower intercurrent respiratory tract infection. Difficult to tell in the absence of a fever and elevated white count. Unfortunately, I do not believe there is a great deal we can offer this patient. Most recent echocardiogram done yesterday once again suggest an elevated right ventricular systolic pressure greater than 60 mmHg with a flattened septum, suggesting right pressure and volume overload. One has to be careful with over diuresing the patient with cor pulmonale. The patient clearly feels better, at least psychologically on oxygen at 2 liters and felt he was over medicated with increased oxygen supplementation on admission. This information was given to patient by the "specialist" at the [facility] in [place] where he received stem cell therapy. We will follow along with you. Thank you very much for this consultation.
[2017-04-12] MEDS: AcetaZOLAMIDE 250 MG TAB PO SCH (21:03)
[2017-04-13] VITALS (8 sets, daily range): BP systolic 100–116; BP diastolic 67–73; PULSE 69–104; TEMP 36.4–36.6; O2SAT 91–98
[2017-04-13] MEDS: METHYLPREDNISOLONE IV 60 MG in SYRINGE 0 ML IV SCH ×3 (04:30→19:58)
[2017-04-13] MEDS: INSULIN ASPART 100 UNITS/ML 3 ML PEN SC SCH ×4 (06:30→20:37)
[2017-04-13] MEDS: ALBUT/IPRATROP 3MG/0.5MG NEB 3 ML VIAL INH SCH ×4 (07:19→19:10)
[2017-04-13] MEDS: BUDESONIDE/FORMOTEROL FUMARATE 160/4.5 60 PUFFS/INHALER INH SCH ×2 (07:51→19:59)
[2017-04-13] MEDS: TIOTROPIUM BROMIDE 5 PUFF/90 MCG INH INH SCH (07:51)
[2017-04-13] MEDS: ENOXAPARIN 40 MG/0.4 ML SYR SC SCH (07:54)
[2017-04-13] MEDS: POTASSIUM CHLORIDE 20 MEQ TABCR PO SCH ×2 (07:55→19:59)
[2017-04-13] MEDS: AcetaZOLAMIDE 250 MG TAB PO SCH (07:55)
[2017-04-13] MEDS: MAGNESIUM OXIDE 400 MG TAB PO SCH ×2 (07:55→19:59)
[2017-04-13] MEDS: HYDROCHLOROTHIAZIDE 25 MG TAB PO SCH (07:56)
[2017-04-13] MEDS: TAMSULOSIN HCL 0.4 MG CAP PO SCH (07:57)
[2017-04-13] MEDS: MULTIVITAMIN TAB PO SCH (07:57)
[2017-04-13] MEDS: ASPIRIN 81 MG ECTAB PO SCH (07:58)
[2017-04-13 08:35] LABS: CALCIUM 9.1 mg/dl (8.5-10.1); CREATININE 0.78 mg/dl (0.60-1.40); POTASSIUM 4.1 mmol/L (3.5-5.1)
[2017-04-13] MEDS ORDERED: FUROSEMIDE INJ 40 MG in SYRINGE 0 ML IV SCH (09:00)
--- NOTE | 2017-04-13 14:37 | Hospitalist Progress Note ---
Hospitalist Progress Note Date of Service Apr 13, 2017. Subjective Pt evaluation today including: conversation w/ patient, physical exam, chart review, review of inpatient medication list Voiding: no voiding problems Mr. Zelaya is feeling much better today and oxygen requirements have decreased to 2L NC. He is refusing to take the prescribed steroids, he did receive a total of 120 mg of Solu-medrol yesterday as well as lasix and nebulizer treatments. However, he feels that the entire problem was that his oxygen was up to0 high over the past few days. I did spend time discussing my plan and reasoning for medication/oxygen regimen I had prescribed but in the end he stated that he did not want further steroids and also refused evaluation by PT/OT. He further stated that he will not see pulmonary here again. He sees Dr. Morin outpatient. ROS Constitutional: no chills, aches, sweats or fever Respiratory: no sob,cough, sputum, or wheezing Cardiac: no chest pain, palpitations, edema, orthopnea or lightheadedness GI: no abdominal pain, nausea, vomiting, diarrhea or constipation : no dysuria or hesitancy Extremities: no joint pain or weakness Skin: no rash All other systems reviewed and negative Medications Medications (Trade) Dose Ordered Sig/Tomasa Route Start Time Stop Time Status Last Admin Dose Admin Furosemide 40 mg/ Syringe 4 ml @ 4 mls/min DAILY IV 04/13/17 09:00 05/13/17 08:59 04/13/17 07:53 4 MLS/MIN Acetazolamide (Diamox Tab) 250 mg BID PO 04/12/17 21:00 04/13/17 20:59 04/13/17 07:55 250 MG Objective Vital Signs Date Time Temp Pulse Resp B/P (MAP) Pulse Ox O2 Delivery O2 Flow Rate FiO2 04/13/17 11:12 97 16 96 Nasal Cannula 3.0 04/13/17 11:12 91 Nasal Cannula 2.5 04/13/17 10:11 98 Nasal Cannula 2.0 04/13/17 08:00 Nasal Cannula 2.0 04/13/17 07:50 36.4 87 18 116/73 (87) 98 Nasal Cannula 2.0 04/13/17 07:20 82 16 94 Nasal Cannula 2.0 04/13/17 00:10 Nasal Cannula 2.0 04/12/17 23:38 36.8 104 20 114/69 (84) 91 Nasal Cannula 2.0 04/12/17 19:37 113 16 93 Nasal Cannula 2.0 04/12/17 16:00 91 Nasal Cannula 2.0 04/12/17 14:54 101 16 92 Nasal Cannula 2.0 04/12/17 14:45 37.1 95 20 104/63 (77) 91 4.0 Physical Exam Notes: General: no distress Eyes: normal inspection, PERLL Respiratory: chest non tender, expiratory wheezes throughout lung king that are less pronounced today than yesterday, no respiratory distress, no accessory muscle use Cardiac: regular rate and rhythm, no rub or gallop, no murmur, +1 pitting edema lower extremities, no jvd GI/: active bowel sounds, no abd pain or tenderness, soft, non distended Extremities: normal range of motion, normal strength, non tender Neuro/Psych: alert and oriented x 3, normal mood and affect Skin: normal color, dry Laboratory Results Last 24 Hours Test 04/12/17 17:49 04/12/17 19:46 04/13/17 07:42 04/13/17 08:02 Bedside Glucose 204 mg/dl 197 mg/dl 129 mg/dl Sodium Level 136 mmol/L Potassium Level 4.1 mmol/L Chloride Level 94 mmol/L Carbon Dioxide Level 36 mmol/L Anion Gap 6.0 mmol/L Blood Urea Nitrogen 12 mg/dl Creatinine 0.78 mg/dl Est Creatinine Clear Calc Drug Dose 73.7 ml/min Estimated GFR () 108.3 Estimated GFR (Non- 93.4 BUN/Creatinine Ratio 15.9 Random Glucose 178 mg/dl Calcium Level 9.1 mg/dl Magnesium Level 2.3 mg/dl Test 04/13/17 11:02 Bedside Glucose 193 mg/dl Assessment and Plan Mr. Zelaya is a 67 year old man here with COPD and pulmonary htn Severe COPD with acute on chronic hypoxia - ABG shows compensated pH with both respiratory acidosis and metabolic alkalosis - Continue inhalers: Spiriva and Symbicort - Will change IV lasix to po, - will decrease solumedrol to 60 mg bid though patient refuses to take further and will request nursing provide supportive education for medication regimen, continue duonebs qid, Bilateral pitting edema - improved - lasix induced a bit of a contraction alkalosis - stopped IV and switched to po 40 mg lasix for tomorrow - patient apparently not compliant at home with oxygen or sodium intake - continue education to encourage compliance at home. Pulmonary HTN/ Elevated trop - mild demand ischemia, given no EKG findings other than PACs - Trop peaked at .058 and trends down - ECHO without RWMA but did show increased right ventricular systolic pressures Hyperglycemia - Patient's blood sugars were elevated x1 before solu- medrol administration and then stayed elevated after - A1c - 5.7 - BSG AC & HS, ss metabolic alkalosis -baseline as compensatory for chronic respiratory acidosis; acute appearing to be contraction alkalosis from diuretics - continue to monitor severe pulmonary HTN -appearing due to his severe COPD, continue with treatments outlined above VTE proph - Lovenox SC q24h
[2017-04-14] MEDS: METHYLPREDNISOLONE IV 60 MG in SYRINGE 0 ML IV SCH ×2 (03:51→12:00)
[2017-04-14 06:35] LABS: CALCIUM 8.6 mg/dl (8.5-10.1); CREATININE 0.75 mg/dl (0.60-1.40); POTASSIUM 4.4 mmol/L (3.5-5.1)
[2017-04-14 07:11] VITALS: PULSE 108; O2SAT 91
[2017-04-14] MEDS: ALBUT/IPRATROP 3MG/0.5MG NEB 3 ML VIAL INH SCH ×2 (07:11→11:18)
[2017-04-14 08:04] VITALS: BP 101/65; PULSE 108; TEMP 36.3; O2SAT 92
[2017-04-14] MEDS: BUDESONIDE/FORMOTEROL FUMARATE 160/4.5 60 PUFFS/INHALER INH SCH (08:04)
[2017-04-14] MEDS: TIOTROPIUM BROMIDE 5 PUFF/90 MCG INH INH SCH (08:04)
[2017-04-14] MEDS: INSULIN ASPART 100 UNITS/ML 3 ML PEN SC SCH ×2 (08:04→12:09)
[2017-04-14] MEDS: MULTIVITAMIN TAB PO SCH (08:05)
[2017-04-14] MEDS: ASPIRIN 81 MG ECTAB PO SCH (08:06)
[2017-04-14] MEDS: HYDROCHLOROTHIAZIDE 25 MG TAB PO SCH (08:06)
[2017-04-14] MEDS: TAMSULOSIN HCL 0.4 MG CAP PO SCH (08:08)
[2017-04-14] MEDS: POTASSIUM CHLORIDE 20 MEQ TABCR PO SCH (08:09)
[2017-04-14] MEDS: MAGNESIUM OXIDE 400 MG TAB PO SCH (08:09)
[2017-04-14] MEDS: ENOXAPARIN 40 MG/0.4 ML SYR SC SCH (08:11)
[2017-04-14] MEDS ORDERED: FUROSEMIDE 40 MG TAB PO SCH (09:00)
[2017-04-14] MEDS ORDERED: LSX40 PO (09:57)
[2017-04-14] MEDS ORDERED: MCRK20 PO (09:57)
[2017-04-14] MEDS ORDERED: FURO-85 PO (09:59)
--- NOTE | 2017-04-14 10:07 | Discharge Instructions ---
Discharge Instructions Date of Service Apr 14, 2017. Admission Reason for Admission: Hypoxia, Pitting Edema Discharge Discharge Diagnosis / Problem: Pulmonary hypertension, COPD Discharge Goals Goal(s): Improve disease control Activity Recommendations Activity Limitations: resume your previous activity . Instructions / Follow-Up Instructions / Follow-Up Call your Primary Care doctor if any of the following symptoms or problems start or get worse: * Shortness of breath or difficulty breathing * Wake up at night short of breath * Chest pain * Cough * Swelling of your hands, feet, or legs * More fatigued or tired with your normal activity * Palpitations - sudden fast heart beats WEIGHT * Weigh yourself every morning after using the bathroom. * Use the same scale. * Wear the same amount of clothing. * Write your weight down on a chart. * Call your Primary Care doctor if you gain more than 2-3 pounds in 1-2 days. MEDICATIONS * Use this discharge instruction sheet for medication instructions. * Take your medications at the time your doctor ordered. * Do not skip a dose of your medicines. * If you miss a dose of medicine, take it as soon as possible, but DO NOT DOUBLE A DOSE. * Read your medicine information when you get home. * Know all of the side effects of your medicine. If in doubt, ask your pharmacist * Call your Primary Care doctor's office if you have any side effects. * Be sure all of your doctors know what medicine and herbs you take (including cold, flu, and herbal medicine). Take the following with you to your follow-up doctor appointments: * Weight Chart * Medication List * List of questions Do not drink excessive alcohol, beer or wine. Please keep your follow up appointments. I have given you prescriptions for a low dose of daily lasix and potassium until you see your primary care provider. You should discuss with them whether to continue these medications. Please have your blood work taken in two days on 04/16. The results will go to your primary care provider. Current Hospital Diet Patient's current hospital diet: AHA Diet (Heart Healthy), Low Sodium Diet (2gm Na) Discharge Diet Recommended Diet: AHA Diet (Heart Healthy), Low Sodium Diet (2gm Na) Procedures Procedures Performed: Chest xray Pending Studies Studies pending at discharge: no Laboratory Results Hemoglobin A1c Test 04/12/17 11:16 Range/Units Estimated Average Glucose 117 mg/dl Hemoglobin A1c 5.7 H 4.5-5.6 % Medical Emergencies . Who to Call and When: Call 911 or go to the Emergency Room if: * If at any time you feel your situation is an emergency * You have tightness or pain in your chest that does not go away with rest or Nitroglycerin * You are very short of breath even with rest . Non-Emergent Contact Non-Emergency issues call your: Primary Care Provider Call Non-Emergent contact if: you have any medication questions . Past History Medical & Surgical History: (1) Pulmonary hypertension (2) COPD exacerbation (3) CHF exacerbation (4) Hypoxia (5) Pitting edema . "Provider Documentation" section prepared by [facility]. . VTE Core Measure Inpt VTE Proph given/why not?: Unfractionated heparin SQ
[2017-04-14 11:22] VITALS: PULSE 67; O2SAT 92
[2017-04-14 12:55] VITALS: BP 101/65; PULSE 67; TEMP 36.3; O2SAT 92
--- NOTE | 2017-04-14 15:51 | Discharge Summary ---
Discharge Summary Date of Service Apr 14, 2017. Discharge Summary Admission Date: Apr 10, 2017 at 21:53 Discharge Date: Apr 14, 2017 Discharge Disposition: Home Principal Diagnosis: Severe COPD with acute on chronic hypoxia Problems/Secondary Diagnoses: Bilateral pitting edema, Pulmonary HTN/ Elevated trop, Hyperglycemia, metabolic alkalosis, severe pulmonary HTN Immunizations: Have You Had Influenza Vaccine: No History of Tetanus Vaccine?: UPTD History of Pneumococcal: Yes History of Hepatitis B Vaccine: No Procedures: CHEST 2 VIEWS ROUTINE CLINICAL HISTORY: sob, increased O2 needs, inspiratory wheezes dyspnea COMPARISON STUDY: 04/10/2017 FINDINGS: Slight increase in bronchovascular prominence throughout both hemithoraces. Baseline emphysematous and chronic fibrotic change. IMPRESSION: Pulmonary vascular congestion superimposed upon emphysematous change. Findings are slightly progressive compared to the prior study. CHEST ONE VIEW PORTABLE CLINICAL HISTORY: sob hypoxia COMPARISON STUDY: 02/02/2017 FINDINGS: Mild cardiomegaly. Emphysematous change. Calcified pleural plaque right midlung. No focal infiltrate. IMPRESSION: Emphysematous and chronic fibrotic change. Mild cardiomegaly. Consultations: Dr. Cortes from pulmonology Medication Reconciliation New Medications: Furosemide (Lasix) 20 Mg Tab 20 MG PO DAILY for 7 Days, #7 TAB Potassium Chloride (Klor-Con M20) 20 Meq Tabcr 20 MEQ PO DAILY for 7 Days, #7 DOSE Continued Medications: Aspirin (Aspirin Ec) 81 Mg Tab 81 MG PO DAILY Budesonide/Formoterol Fumarate (Symbicort 160/4.5 Inhaler ) Aero 2 PUFFS INH BID, INHALER Folic Acid (Folvite) 1 Mg Tab 1 MG PO QAM, TAB Home O2 Therapy (Oxygen) Gas 1 LITER NA CONTINOUS, BTL Hydrochlorothiazide (Hydrochlorothiazide) 12.5 Mg Tab 12.5 MG PO DAILY, TAB Multiple Vitamin (Daily Vadim) 1 Tab Tab 1 TAB PO DAILY Tamsulosin Hcl (Flomax) 0.4 Mg Cap 0.4 MG PO DAILY, CAP Tiotropium [place] (Spiriva Handihaler) 30 Puff/540 Mcg Aerp 1 CAP INH DAILY, INHALER Discharge Exam ROS Constitutional: no chills, aches, sweats or fever Respiratory: no sob,cough, sputum, or wheezing Cardiac: no chest pain, palpitations, edema, orthopnea or lightheadedness GI: no abdominal pain, nausea, vomiting, diarrhea or constipation : no dysuria or hesitancy Extremities: no joint pain or weakness Skin: no rash All other systems reviewed and negative PE General: no distress Eyes: normal inspection, PERLL Respiratory: chest non tender, clear to auscultation, normal breath sounds, no respiratory distress, no accessory muscle use Cardiac: regular rate and rhythm, no rub or gallop, no murmur, no edema, no jvd GI/: active bowel sounds, no abd pain or tenderness, soft, non distended Extremities: normal range of motion, normal strength, non tender Neuro/Psych: alert and oriented x 3, normal mood and affect Skin: normal color, dry Hospital Course Mr. Zelaya is a 67 year old man who presented for swelling of bilateral extremities and sob after he developed a cough and cold ~ 1 week [employer]. In the ED he was found to be hypoxic with a saturation of 68% on 1L which he wears chronically. From a breathing stand point, though he was told to keep oxygen on continuously at ~1L at baseline, he had "not been requiring it" for the last several weeks prior to his illness. He was diagnosed with cor pulmonale back in 2013, and states he has not had any exacerbation since then. 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 Severe COPD with acute on chronic hypoxia - ABG shows compensated pH with both respiratory acidosis and metabolic alkalosis - Continue inhalers: Spiriva and Symbicort - IV lasix last given 04/13, switched to 20 mg po daily until follow up with primary care. - On 04/12 he had increased expiratory/inspiratory wheezing, requiring 4L NC and sating low 90s so he was given a dose of IV lasix, 60 mg of solumedrol x2 and nebulizers and his oxygen requirements began to come down. Patient refused to continue taking further steroids because of the increase in his blood sugar. He also felt all of his respiratory problems were due to his supplemental oxygen having been increased despite his hypoxic state upon admission. I provided education on risks and benefits of his treatment plan but he refused further intervention with steroids. Bilateral pitting edema - improved - lasix induced a bit of a contraction alkalosis - low dose po lasix for home - patient apparently not compliant at home with oxygen or sodium intake - continued education to encourage compliance at home. Pulmonary HTN/ Elevated trop - mild demand ischemia, given no EKG findings other than PACs - Trop peaked at .058 and trended down - ECHO without RWMA but did show increased right ventricular systolic pressures Hyperglycemia - Patient's blood sugars were elevated x1 before solu- medrol administration and then stayed elevated after - A1c - 5.7 metabolic alkalosis -baseline as compensatory for chronic respiratory acidosis; acute appearing to be contraction alkalosis from diuretics - continue to monitor severe pulmonary HTN -appearing due to his severe COPD, continue with treatments outlined above VTE proph - Lovenox SC q24h Total Time Spent: Greater than 30 minutes This includes examination of the patient, discharge planning, medication reconciliation, and communication with other providers. Discharge Instructions Please refer to the electronic Patient Visit Report (Discharge Instructions) for additional information. Follow-Up Dr. Jason Tamayo with his associate, Dr. Ramos, on WednesdayApril 19 at 9:[address] Morin's office with Jenniffer Monroy PA-C on WednesdayApril 26 at 9:00 am. PRP 04/[address] Tamayo Additional Copies To Jason Tamayo M.D.; Kian Morin M.D.
== END 2017-04-14 14:35 | disposition home or self-care (01) | DRG 189 ==
LOC: C.EDB 17:38 → C.2T 21:53 → ENRESERV 22:04 → C.MS2W 04-11 17:53
PROVIDERS: ADMIT Hospitalist; ATTEND Hospitalist
DX: J96.21 Acute and chronic respiratory failure with hypoxia (principal); J44.1 Chronic obstructive pulmonary disease with (acute) exacerbation; I24.8 Other forms of acute ischemic heart disease; E87.4 Mixed disorder of acid-base balance; J96.22 Acute and chronic respiratory failure with hypercapnia; I50.9 Heart failure, unspecified; Z87.891 Personal history of nicotine dependence; I27.29 Other secondary pulmonary hypertension; Z79.82 Long term (current) use of aspirin; E83.42 Hypomagnesemia; Z99.81 Dependence on supplemental oxygen

== ENCOUNTER 2020-08-13 18:58 | Inpatient (IN) ==
[2020-08-13] MEDS ORDERED: SODIUM CHLORIDE 0.9% 500 ML IV STA (19:06)
[2020-08-13] MEDS ORDERED: NOREPINEPHRINE/D5W 8 MG/508 ML IV ONE (19:07)
[2020-08-13] MEDS ORDERED: Standard Conc 16mcg/mL; 8mg in 500mL IV SCH (19:10)
[2020-08-13] MEDS ORDERED: HYDROCORTISONE SOD SUCCINATE 100 MG/2 ML VIAL IV STA (19:42)
[2020-08-13 19:49] LABS: Albumin Level 2.9 gm/dl (3.4-5.0); BUN Creatinine Ratio 24.5 (10-20); Calcium 9.6 mg/dl (8.5-10.1); Creatinine Clr Calc Pharmacy 49.2 ml/min; Est GFR (Non-African American) 70.8 ml/min; Magnesium 3.4 mg/dl (1.8-2.4); Potassium 4.7 mmol/L (3.5-5.1)
[2020-08-13 19:54] LABS: INR 1.1 (0.9-1.1); Prothrombin Time 10.7 Seconds (9.0-12.0)
[2020-08-13 19:57] LABS: Albumin Globulin Ratio 0.8 (0.9-2); Bilirubin,Total 0.4 mg/dl (0.2-1); Globulin 3.7 gm/dl (2.5-4.0); Thyroid Stimulating Hormone 1.74 uIu/ml (0.300-4.500); Total Protein 6.6 gm/dl (6.4-8.2); Troponin I 0.031 ng/ml (0-0.045)
[2020-08-13 19:58] LABS: Appearance Urine Clear (Clear); Bilirubin Urine Negative (Negative); Blood Urine 2+ (Negative); Color Urine Yellow; Glucose Urine UA Trace (Negative); Ketones Urine Negative (Negative); Leukocyte Esterase Urine Negative (Negative); Nitrite Urine Negative (Negative); Protein Urine 2+ (Negative); Specific Gravity Urine 1.025 (1.000-1.030); Urobilinogen Urine Negative (Negative)
[2020-08-13] MEDS ORDERED: STAT IV Infusion **Titration per Protocol STA ×3 (20:02→23:06)
--- NOTE | 2020-08-13 20:07 | History & Physical Report ---
Date of Service August 13, 2020 Assessment & Plan (1) Cardiac arrest: 70yo C male with severe COPD presenting by EMS after out of hospital arrest. Unknown down time, initial rhythm by AED un-shockable, ROSC achieved with epinephrine x 2 doses. Patient intubated in the field, unresponsive with GCS of 3T. Hypotensive in the ER requiring Levophed. Family at bedside to include and adult children. In the past, the patient expressed his wishes that he would not aggressive measures to prolong his life. Family is waiting for one additional family member to join them from [place] then plan on withdrawal of care, transition to comfort measures only. -Admit to MICU -Continue Code Arctic per protocol -Continue Levophed, will initiate Vasopressin as well for blood pressure support -Will pursue comfort only measures when patient's daughter arrives from [place] Plan discussed with family at bedside who are in agreement. All questions answered to the best of my ability. [place] - [place] - - [phone] Present on Admission?: Yes History of Present Illness Chief Complaint: out of hospital cardiac arrest Primary Care Provider: Jason Tamayo MD Sacha Zelaya is a 70yo C male with history of severe COPD on home O2, cor pulmonale and chronic CO2 retention presenting after out of hospital cardiac arrest. Patient intubated at time of encounter. History obtained through chart review, discussion with ER staff and discussion with family at bedside. states that patient has been acting somewhat strangely for the last several days. He has been a little less responsive and interactive. He is chronically short of breath due to underlying COPD but was a little more short of breath during the last several days. Patient was at home this afternoon. His left him to go shopping - states she was out of the house only 10-15 minutes. When she came home she found the patient unresponsive on the floor. He had broken glass around him. He was not breathing or responsive at that time. She called 911 - police arrived approximately 5 minutes later and started CPR. An AED was placed - rhythm was not shockable. When EMS arrived they intubated the patient, administered epinephrine x 2 doses with ROSC. Patient received 400mL of IVF prior to arrival. Upon arrival to the ER patient hemodynamically improved with systolic BP of 100. Unresponsive. Patient became hypotensive and was started on Levophed Allergies Allergy/AdvReac Type Severity Reaction Status Date / Time No Known Allergies Allergy Verified 08/13/20 19:14 Home Medications Medication Instructions Recorded Confirmed Type Oxygen Home #1 ea 10/19/18 08/01/20 History budesonide-formoterol HFA 160 2 puffs INHALATION BID #2 gm 10/19/18 08/13/20 History mcg-4.5 mcg/actuation aerosol inhaler folic acid 1 mg tablet 1 mg PO DAILY tab 10/19/18 08/13/20 History multivitamin 1 tab PO DAILY 10/19/18 08/13/20 History thiamine HCl (vitamin B1) 100 mg 100 mg PO DAILY tab 10/19/18 08/13/20 History tablet tiotropium bromide 18 mcg capsule See Rx Instructions .ROUTE 10/17/19 08/13/20 Rx with inhalation device .COMPLEX #90 puffs albuterol sulfate 90 mcg/actuation 2 inh INH Q6H PRN #3 inhaler 01/10/20 08/13/20 Rx aerosol inhaler hydrochlorothiazide 12.5 mg tablet 12.5 mg PO DAILY #90 tab 01/15/20 08/13/20 Rx prednisone 10 mg tablet 10 mg PO .COMPLEX #50 tab 07/24/20 08/13/20 Rx aspirin 81 mg PO DAILY 08/13/20 08/13/20 History Past Med/Surg History Medical History BPH (benign prostatic hyperplasia) Chronic obstructive pulmonary disease Cor pulmonale Hypoxia Secondary pulmonary hypertension Family History Mother Cancer Brother Prostate cancer Social History Smoking Status: Former smoker Cigarettes Per Day: 20; Smoking End Date: 2015; Second Hand Exposure: No; Hx Alcohol Use: No Hx Substance Use: No Preferred Language: Macedonian Communication Ability: Effective Cargo [employer]ker Required: No Beliefs That Will Affect Care: None marital status: Current Living Situation: Spouse current occupational status: employed Feels Safe at Home: Declines to Answer Assistive Devices: Oxygen - Continuous Review of Systems Review of Systems: Unobtainable due to endotracheal tube Physical Exam Physical Exam: General: patient intubated, no withdrawal from painful stimuli Skin: warm, dry, intact, no rashes or lesions HEENT: NC/AT, Pupils pinpoint, round and unreactive, anicteric sclera, conjunctiva without injection, external ear normal to inspection, nares patent, moist mucus membranes, dentition intact, ETT in place, trachea midline, no LAD, no thyromegaly, no JVD Heart: +S1/S2, regular, tachycardic, no m/r/g Lungs: equal air entry bilaterally, no rales/rhonchi/wheezes Abd: +BS, soft, ND, no masses/organomegaly/ascites Ext: warm, 2+ pulses in UE/LE bilaterally, no clubbing/cyanosis or edema Neuro: intubated, no eye opening, no verbal response, no withdrawal from painful stimuli - GCS 3T at this time Results & Data Results & Data ([facility]) Vital Signs (Past 12 Hours) Vital Signs Temp Pulse Resp BP Pulse Ox 08/13/20 19:36 34.5 C L 08/13/20 19:30 112 H 92 08/13/20 19:25 116 H 08/13/20 19:22 34.5 C L 110 H 100 08/13/20 19:20 115 H 71/55 L 08/13/20 19:16 123 H 42/20 L 100 08/13/20 19:15 108 H 99 08/13/20 19:10 139 H 67/42 L 100 08/13/20 19:06 127 H 21 59/37 L 100 08/13/20 19:04 130 H 18 128/103 H Laboratory Results Laboratory Results WBC 6.00 K/uL (4.8-10.8) 08/13/20 19:15 RBC 3.32 M/uL (4.7-6.1) L 08/13/20 19:15 Hgb 11.2 g/dL (14.0-18.0) L 08/13/20 19:15 Hct 40.0 % (42-52) L 08/13/20 19:15 MCV 120.5 fL (80-100) H 08/13/20 19:15 MCH 33.7 pg (25-34) 08/13/20 19:15 MCHC 28.0 g/dL (32-36) L 08/13/20 19:15 RDW Std Deviation 57.7 fL (36.4-46.3) H 08/13/20 19:15 RDW Coeff of Idalia 13.2 % (11.5-14.5) 08/13/20 19:15 Plt Count 244 K/uL (130-400) 08/13/20 19:15 MPV 10.1 fL (7.4-10.4) 08/13/20 19:15 Immature Gran % (Auto) 1.8 % 08/13/20 19:15 Neut % (Auto) 85.3 % 08/13/20 19:15 Lymph % (Auto) 9.2 % 08/13/20 19:15 Randolph % (Auto) 3.2 % 08/13/20 19:15 Eos % (Auto) 0.3 % 08/13/20 19:15 Baso % (Auto) 0.2 % 08/13/20 19:15 Neut # (Auto) 5.12 K/uL (1.4-6.5) 08/13/20 19:15 Lymph # (Auto) 0.55 K/uL (1.2-3.4) L 08/13/20 19:15 Randolph # (Auto) 0.19 K/uL (0.11-0.59) 08/13/20 19:15 Eos # (Auto) 0.02 K/uL (0-0.5) 08/13/20 19:15 Baso # (Auto) 0.01 K/uL (0-0.2) 08/13/20 19:15 Immature Gran # (Auto) 0.11 K/uL (0.00-0.02) H 08/13/20 19:15 Macrocytosis Present 08/13/20 19:15 Stomatocytes 2+ 08/13/20 19:15 PT 10.7 Seconds (9.0-12.0) 08/13/20 19:15 INR 1.1 (0.9-1.1) 08/13/20 19:15 APTT 24.2 Seconds (21.0-31.0) 08/13/20 19:06 PTT Ratio 0.9 08/13/20 19:06 Sodium 146 mmol/L (136-145) H 08/13/20 19:15 Potassium 4.7 mmol/L (3.5-5.1) 08/13/20 19:15 Chloride 93 mmol/L (98-107) L 08/13/20 19:15 Carbon Dioxide 43 mmol/L (21-32) H* 08/13/20 19:15 Anion Gap 12.0 (3-11) H 08/13/20 19:15 BUN 26 mg/dl (7-18) H 08/13/20 19:15 Creatinine 1.06 mg/dl (0.6-1.4) 08/13/20 19:15 Est Cr Clr Drug Dosing 49.2 ml/min 08/13/20 19:15 Est GFR ( Amer) 82.0 ml/min 08/13/20 19:15 Est GFR (Non-Af Amer) 70.8 ml/min 08/13/20 19:15 BUN/Creatinine Ratio 24.5 (10-20) H 08/13/20 19:15 Glucose 217 mg/dl (70-99) H 08/13/20 19:15 Calcium 9.6 mg/dl (8.5-10.1) 08/13/20 19:15 Magnesium 3.4 mg/dl (1.8-2.4) H 08/13/20 19:15 Total Bilirubin 0.4 mg/dl (0.2-1) 08/13/20 19:15 AST 251 U/L (15-37) H 08/13/20 19:15 ALT 152 U/L (12-78) H 08/13/20 19:15 Alkaline Phosphatase 110 U/L (45-117) 08/13/20 19:15 Troponin I 0.031 ng/ml (0-0.045) 08/13/20 19:15 Total Protein 6.6 gm/dl (6.4-8.2) 08/13/20 19:15 Albumin 2.9 gm/dl (3.4-5.0) L 08/13/20 19:15 Globulin 3.7 gm/dl (2.5-4.0) 08/13/20 19:15 Albumin/Globulin Ratio 0.8 (0.9-2) L 08/13/20 19:15 Lipase 194 U/L (73-393) 08/13/20 19:15 TSH 1.740 uIu/ml (0.300-4.500) 08/13/20 19:15 Urine Color Yellow 08/13/20 19:30 Urine Appearance Clear (Clear) 08/13/20 19:30 Urine pH 6.0 (4.5-7.5) 08/13/20 19:30 Ur Specific [place] 1.025 (1.000-1.030) 08/13/20 19:30 Urine Protein 2+ (Negative) H 08/13/20 19:30 Urine Glucose (UA) Trace (Negative) H 08/13/20 19:30 Urine Ketones Negative (Negative) 08/13/20 19:30 Urine Blood 2+ (Negative) H 08/13/20 19:30 Urine Nitrite Negative (Negative) 08/13/20 19:30 Urine Bilirubin Negative (Negative) 08/13/20 19:30 Urine Urobilinogen Negative (Negative) 08/13/20 19:30 Ur Leukocyte Esterase Negative (Negative) 08/13/20 19:30 Urine RBC 10-30 /hpf (0-4) H 08/13/20 19:30 Urine WBC 10-30 /hpf (0-5) H 08/13/20 19:30 Ur Epithelial Cells 5-10 /lpf (0-5) H 08/13/20 19:30 Urine Bacteria 1+ (Negative) H 08/13/20 19:30 COVID-19 Eval Order Covid19 at [facility] 08/13/20 19:50 SARS-CoV-2 (PCR) NEGATIVE (Negative) 08/13/20 19:50 Impressions Chest X-Ray 08/13/20 19:07 SINGLE VIEW CHEST CLINICAL HISTORY: Atypical chest pain. FINDINGS: An AP, portable, supine chest radiograph is compared to study dated 07/24/2020 and correlated with chest CT dated 06/07/2013. An endotracheal tube has been placed. The tip projects 6 cm above the elizabeth. A cardiac pad projects over the right apex. The heart is top normal for projection noting atherosclerotic calcification of the thoracic aorta. The pulmonary vasculature is noncongested. Enlargement of the central pulmonary arteries suggests pulmonary artery hypertension. Emphysema and chronic interstitial thickening is similar to previous. Patchy airspace opacities are noted in the right midlung. No large pleural effusion or pneumothorax is seen. The skeletal structures are osteopenic. The bony thorax is grossly intact. IMPRESSION: 1. An endotracheal tube has been placed as above. 2. Advanced emphysema 3. Airspace opacities are noted in the right midlung. Correlate clinically for evidence of a mild infectious/inflammatory pneumonitis. Radiographic follow-up to resolution is recommended. ACT 112: Negative or not required by law. Electronically signed by: Pratik Song M.D. 08/13/2020 8:24 PM Code Status & VTE Plan VTE Prophylaxis Plan VTE Prophylaxis will be ordered: Yes Critical Care Time Critical Care Time: Yes Total Critical Care Time: 30 PG Care Time/CCT Total # of Minutes Spent Total Time Spent with Patient: Total time spent is greater than 50% in coordination of care (as documented) at patient's floor/unit and/or counseling patient: Critical Care Time: Yes Total Critical Care Time: 30 Coding Level of Care Code None Diagnoses Cardiac arrest I46.9 Additional Codes Critical Care Time - Critical Care Time: Yes ([id number])
[2020-08-13 20:11] LABS: Bacteria Urine 1+ (Negative)
[2020-08-13] MEDS ORDERED: NOREPINEPHRINE/D5W 8 MG/508 ML BAG IV SCH ×2 (20:15→22:19)
--- NOTE | 2020-08-13 20:25 | XRay Report ---
SINGLE VIEW CHEST CLINICAL HISTORY: Atypical chest pain. FINDINGS: An AP, portable, supine chest radiograph is compared to study dated 07/24/2020 and correlate d with chest CT dated 06/07/2013. An endotracheal tube has been placed. The tip projects 6 cm above th e elizabeth. A cardiac pad projects over the right apex. The heart is top normal for projection noting a therosclerotic calcification of the thoracic aorta. The pulmonary vasculature is noncongested. Enlarg ement of the central pulmonary arteries suggests pulmonary artery hypertension. Emphysema and chronic interstitial thickening is similar to previous. Patchy airspace opacities are noted in the right mid lung. No large pleural effusion or pneumothorax is seen. The skeletal structures are osteopenic. The bony thorax is grossly intact. IMPRESSION: 1. An endotracheal tube has been placed as above. 2. Advanced emphysema 3. Airspace opacities are noted in the right midlung. Correlate clinically for evidence of a mild inf ectious/inflammatory pneumonitis. Radiographic follow-up to resolution is recommended. ACT 112: Negative or not required by law. Electronically signed by: Pratik Song M.D. 08/13/2020 8:24 PM
[2020-08-13 20:26] LABS: Partial Thromboplastin Ratio 0.9; Partial Thromboplastin Time 24.2 Seconds (21.0-31.0)
--- NOTE | 2020-08-13 21:18 | Emergency Department Note ---
Impression & Plan Cardiac arrest, Rapid atrial fibrillation, Hypotension, Acidosis ED Provider Note NAME: GERMAN LOZANO AGE: 70 SEX: M : 1950 ARRIVES VIA: Ambulance INFORMANT: [ems] ED PROVIDER(S): [Pratik Muller MD] CHIEF COMPLAINT: Cardiac arrest HISTORY OF PRESENT ILLNESS: The patient is a 70-year-old male who presents after a cardiac arrest. The patient was found unresponsive by his . Police arrived and began CPR. An AED was placed and no shock was advised. EMS arrived and continued CPR and placed an endotracheal tube. They administered 2 doses of IV epinephrine. The patient regained circulation. He received about 400 cc of saline prior to arrival. He arrives at the ED with a strong pulse and a blood pressure of around 100 systolic. He is intubated. He does not respond or move his extremities. The patient has a history of cor pulmonale and right heart failure. He has no diagnosed coronary disease. As per his family, he did not feel the greatest today but has not had any chest pain. He has been short of breath for a while though because of his lung disease. Lately, he has been sitting more and doing less. Given the circumstances, no further history obtainable. REVIEW OF SYSTEMS: Unobtainable given the arrest. PMHx/PSHx: See Below SOCIAL HISTORY: See Below. PHYSICAL EXAM: GENERAL: Intubated. HEENT: No obvious facial trauma. Endotracheal tube is in place. The pupils are pinpoint and equal. They do not react to light. NECK: No stridor, no adenopathy, no obvious C-spine step-off., trachea is midline. LUNGS: Clear to auscultation bilaterally with [id number]-mdel ventilation, no wheeze, no rhonchi, breath sounds equal. HEART: Without murmurs gallops or rubs, tachycardic rate with an irregular rhythm. ABDOMEN: Soft, nondistended. EXTREMITIES: No cyanosis or edema. No obvious extremity fracture. NEUROLOGIC: Intubated. Does not respond to pain. Does not take any spontaneous breaths. SKIN: No rash, no jaundice, no diaphoresis. DIFFERENTIAL DIAGNOSIS: Dysrhythmia, ventricular fibrillation, ventricular tachycardia, MN, hypoxia, PE, stroke, intracranial bleeding, sepsis, C-spine injury, anoxic brain injury, among others. EMERGENCY DEPARTMENT COURSE/PROCEDURES: ECG: Indication was cardiac arrest. The ECG shows atrial fibrillation with a rate of 126. A PVC is noted. The QTc is 469. There is no ST elevation. Continuous Cardiac Monitoring: An order was placed for continuous cardiac monitoring. The monitor shows a rate of 120 with atrial fibrillation. Critical Care Note: I have personally spent 64 minutes of critical care time in the direct management of this patient. This includes bedside care, interpretation of diagnostic studies, and testing, discussion with consultants, patient, and family members, and other required patient management activities. This 64 minutes is in excess of all separately billable procedures. Central line placement: This procedure was performed by me. The area for the procedure was cleansed sterilely and prepared for the procedure. Lidocaine was used for anesthesia. Sterile technique was employed. Using the Seldinger technique, I was able to cannulate the right femoral vein. No significant complications. There was no arterial stick during the procedure. All ports did flush well. The line was then sutured into position. MEDICAL DECISION MAKING: There was no leukocytosis. The patient does have a mild anemia with a hemoglobin of 11.2. Patient has been anemic based on previous testing. There was a normal platelet count. No coagulopathy. ABG did demonstrate a mild acidosis. Renal panel testing shows elevation to the CO2 although, this is baseline looking back at previous testing. No kidney failure. Magnesium was high. There was some liver enzyme elevation, likely consistent with shock liver. No pancreatitis. Patient appeared to be in a euthyroid state. ECG shows a rapid A. fib, no acute ischemic change. Cardiac enzyme testing x1 is not elevated. Urinalysis shows some contamination versus possible infection. Covid testing returned negative. Chest film shows COPD, no obvious pneumonia, no pneumothorax or CHF. Endotracheal tube was slightly high but acceptable. The patient was ordered for a full 2 L of IV saline. This was ordered for the lower blood pressure. He was placed on a Levophed drip for his persistent hypotension. He had a right femoral central line placed as noted above without complication. He was maintained on the ventilator. A Walter catheter and orogastric tube were placed. I did speak with the on-call hospitalist. I did speak with the ICU staff. I spoke to the family at length. The family has decided to move to comfort measures. They feel he would not want this type of aggressive treatment. He has really not had any response neurologically during his time here in the ED. He is not sedated, he is not paralyzed. He does not move any extremities. He does not take a breath on his own. Patient is being transferred to the ICU. Patient appears to have suffered a cardiac arrest. There was an unknown downtime. I am concerned about anoxic brain injury. He is requiring a Levophed drip to maintain his blood pressure. The plan is to withdraw care as mentioned above. Past Med/Surg History Medical History BPH (benign prostatic hyperplasia) Chronic obstructive pulmonary disease Cor pulmonale Hypoxia Secondary pulmonary hypertension Family History Mother Cancer Brother Prostate cancer Social History Smoking Status: Former smoker Cigarettes Per Day: 20; Smoking End Date: 2015; Second Hand Exposure: No; Hx Alcohol Use: No Hx Substance Use: No Preferred Language: Occitan Communication Ability: Effective Mobile Lab Technician Required: No Beliefs That Will Affect Care: None marital status: Current Living Situation: Spouse current occupational status: employed Feels Safe at Home: Declines to Answer Assistive Devices: Oxygen - Continuous Allergies Allergies Allergy/AdvReac Type Severity Reaction Status Date / Time No Known Allergies Allergy Verified 08/13/20 19:14 Home Meds Home Medications Medication Instructions Recorded Confirmed Oxygen Home #1 ea 10/19/18 08/01/20 budesonide-formoterol HFA 160 2 puffs INHALATION BID #2 gm 10/19/18 08/13/20 mcg-4.5 mcg/actuation aerosol inhaler folic acid 1 mg tablet 1 mg PO DAILY tab 10/19/18 08/13/20 multivitamin 1 tab PO DAILY 10/19/18 08/13/20 thiamine HCl (vitamin B1) 100 mg 100 mg PO DAILY tab 10/19/18 08/13/20 tablet aspirin 81 mg PO DAILY 08/13/20 08/13/20 Previous Rx's Medication Instructions Recorded tiotropium bromide 18 mcg capsule See Rx Instructions .ROUTE 10/17/19 with inhalation device .COMPLEX #90 puffs albuterol sulfate 90 mcg/actuation 2 inh INH Q6H PRN #3 inhaler 10/14/20 aerosol inhaler hydrochlorothiazide 12.5 mg tablet 12.5 mg PO DAILY #90 tab 01/15/20 prednisone 10 mg tablet 10 mg PO .COMPLEX #50 tab 07/24/20 Results & Data (ED) Vital Signs Vital Signs - 24 hr 08/13/20 19:04 08/13/20 19:06 08/13/20 19:10 Temperature Temperature Source Pulse Rate 130 H 127 H 139 H Pulse Rate from SpO2 Sensor 92 H 61 Respiratory Rate 18 21 Respiratory Effort / Characteristics Blood Pressure 128/103 H 59/37 L 67/42 L Blood Pressure Mean 111 44 50 Pulse Oximetry 100 100 Oxygen Delivery Method Sepsis Recent Fever Within 48 Hours Sepsis New/Unexplained Change in Mental Status Sepsis Action Taken by Nursing End-Tidal CO2 32 08/13/20 19:15 08/13/20 19:16 08/13/20 19:20 Temperature Temperature Source Pulse Rate 108 H 123 H 115 H Pulse Rate from SpO2 Sensor 77 73 Respiratory Rate Respiratory Effort / Characteristics Blood Pressure 42/20 L 71/55 L Blood Pressure Mean 27 60 Pulse Oximetry 99 100 Oxygen Delivery Method Sepsis Recent Fever Within 48 Hours Sepsis New/Unexplained Change in Mental Status Sepsis Action Taken by Nursing End-Tidal CO2 34 35 38 08/13/20 19:22 08/13/20 19:25 08/13/20 19:30 Temperature 34.5 C L Temperature Source Rectal Pulse Rate 110 H 116 H 112 H Pulse Rate from SpO2 Sensor Respiratory Rate Respiratory Effort / Characteristics Mechanically Ventilated Blood Pressure Blood Pressure Mean Pulse Oximetry 100 92 Oxygen Delivery Method Mechanical Vent Mechanical Vent Sepsis Recent Fever Within 48 Hours No Sepsis New/Unexplained Change in Mental Status No Sepsis Action Taken by Nursing Physician Notified End-Tidal CO2 39 39 08/13/20 19:31 08/13/20 19:36 08/13/20 19:40 Temperature 34.5 C L Temperature Source Pulse Rate 113 H 126 H 127 H Pulse Rate from SpO2 Sensor 76 102 H 99 H Respiratory Rate Respiratory Effort / Characteristics Blood Pressure 82/55 L 91/48 L 84/67 L Blood Pressure Mean 64 62 72 Pulse Oximetry 92 95 94 Oxygen Delivery Method Sepsis Recent Fever Within 48 Hours Sepsis New/Unexplained Change in Mental Status Sepsis Action Taken by Nursing End-Tidal CO2 41 44 44 08/13/20 19:45 08/13/20 19:50 08/13/20 19:55 Temperature Temperature Source Pulse Rate 117 H 128 H 120 H Pulse Rate from SpO2 Sensor 65 61 91 H Respiratory Rate Respiratory Effort / Characteristics Blood Pressure 81/51 L 77/46 L 78/52 L Blood Pressure Mean 61 56 60 Pulse Oximetry 93 95 98 Oxygen Delivery Method Sepsis Recent Fever Within 48 Hours Sepsis New/Unexplained Change in Mental Status Sepsis Action Taken by Nursing End-Tidal CO2 43 41 42 08/13/20 20:00 08/13/20 20:05 Temperature Temperature Source Pulse Rate 129 H 120 H Pulse Rate from SpO2 Sensor 72 104 H Respiratory Rate Respiratory Effort / Characteristics Blood Pressure 80/53 L 76/56 L Blood Pressure Mean 62 62 Pulse Oximetry 95 95 Oxygen Delivery Method Sepsis Recent Fever Within 48 Hours Sepsis New/Unexplained Change in Mental Status Sepsis Action Taken by Nursing End-Tidal CO2 24 42 Home Medications Current Medication List: was personally reviewed by me Laboratory Data Attestation: I reviewed the patient's lab results. Result diagrams: 08/13/20 19:15 08/13/20 19:15 Lab Results 08/13/20 08/13/20 08/13/20 Range/Units 19:06 19:15 19:15 WBC (4.8-10.8) K/uL RBC (4.7-6.1) M/uL Hgb (14.0-18.0) g/dL Hct (42-52) % MCV (80-100) fL MCH (25-34) pg MCHC (32-36) g/dL RDW Std Deviation (36.4-46.3) fL RDW Coeff of Idalia (11.5-14.5) % Plt Count (130-400) K/uL MPV (7.4-10.4) fL Immature Gran % (Auto) % Neut % (Auto) % Lymph % (Auto) % Ferry % (Auto) % Eos % (Auto) % Baso % (Auto) % Neut # (Auto) (1.4-6.5) K/uL Lymph # (Auto) (1.2-3.4) K/uL Ferry # (Auto) (0.11-0.59) K/uL Eos # (Auto) (0-0.5) K/uL Baso # (Auto) (0-0.2) K/uL Immature Gran # (Auto) (0.00-0.02) K/uL Macrocytosis Stomatocytes PT 10.7 (9.0-12.0) Seconds INR 1.1 (0.9-1.1) APTT 24.2 (21.0-31.0) Seconds PTT Ratio 0.9 Sodium 146 H (136-145) mmol/L Potassium 4.7 (3.5-5.1) mmol/L Chloride 93 L (98-107) mmol/L Carbon Dioxide 43 H* (21-32) mmol/L Anion Gap 12.0 H (3-11) BUN 26 H (7-18) mg/dl Creatinine 1.06 (0.6-1.4) mg/dl Est Cr Clr Drug Dosing 49.2 ml/min Est GFR ( Amer) 82.0 ml/min Est GFR (Non-Af Amer) 70.8 ml/min BUN/Creatinine Ratio 24.5 H (10-20) Glucose 217 H (70-99) mg/dl Calcium 9.6 (8.5-10.1) mg/dl Magnesium 3.4 H (1.8-2.4) mg/dl Total Bilirubin 0.4 (0.2-1) mg/dl AST 251 H (15-37) U/L ALT 152 H (12-78) U/L Alkaline Phosphatase 110 (45-117) U/L Troponin I 0.031 (0-0.045) ng/ml Total Protein 6.6 (6.4-8.2) gm/dl Albumin 2.9 L (3.4-5.0) gm/dl Globulin 3.7 (2.5-4.0) gm/dl Albumin/Globulin Ratio 0.8 L (0.9-2) Lipase 194 (73-393) U/L TSH 1.740 (0.300-4.500) uIu/ml Urine Color Urine Appearance (Clear) Urine pH (4.5-7.5) Ur Specific Apison (1.000-1.030) Urine Protein (Negative) Urine Glucose (UA) (Negative) Urine Ketones (Negative) Urine Blood (Negative) Urine Nitrite (Negative) Urine Bilirubin (Negative) Urine Urobilinogen (Negative) Ur Leukocyte Esterase (Negative) Urine RBC (0-4) /hpf Urine WBC (0-5) /hpf Ur Epithelial Cells (0-5) /lpf Urine Bacteria (Negative) COVID-19 Eval Order SARS-CoV-2 (PCR) (Negative) 08/13/20 08/13/20 08/13/20 Range/Units 19:15 19:30 19:50 WBC 6.00 (4.8-10.8) K/uL RBC 3.32 L (4.7-6.1) M/uL Hgb 11.2 L (14.0-18.0) g/dL Hct 40.0 L (42-52) % MCV 120.5 H (80-100) fL MCH 33.7 (25-34) pg MCHC 28.0 L (32-36) g/dL RDW Std Deviation 57.7 H (36.4-46.3) fL RDW Coeff of Idalia 13.2 (11.5-14.5) % Plt Count 244 (130-400) K/uL MPV 10.1 (7.4-10.4) fL Immature Gran % (Auto) 1.8 % Neut % (Auto) 85.3 % Lymph % (Auto) 9.2 % Ferry % (Auto) 3.2 % Eos % (Auto) 0.3 % Baso % (Auto) 0.2 % Neut # (Auto) 5.12 (1.4-6.5) K/uL Lymph # (Auto) 0.55 L (1.2-3.4) K/uL Ferry # (Auto) 0.19 (0.11-0.59) K/uL Eos # (Auto) 0.02 (0-0.5) K/uL Baso # (Auto) 0.01 (0-0.2) K/uL Immature Gran # (Auto) 0.11 H (0.00-0.02) K/uL Macrocytosis Present Stomatocytes 2+ PT (9.0-12.0) Seconds INR (0.9-1.1) APTT (21.0-31.0) Seconds PTT Ratio Sodium (136-145) mmol/L Potassium (3.5-5.1) mmol/L Chloride (98-107) mmol/L Carbon Dioxide (21-32) mmol/L Anion Gap (3-11) BUN (7-18) mg/dl Creatinine (0.6-1.4) mg/dl Est Cr Clr Drug Dosing ml/min Est GFR ( Amer) ml/min Est GFR (Non-Af Amer) ml/min BUN/Creatinine Ratio (10-20) Glucose (70-99) mg/dl Calcium (8.5-10.1) mg/dl Magnesium (1.8-2.4) mg/dl Total Bilirubin (0.2-1) mg/dl AST (15-37) U/L ALT (12-78) U/L Alkaline Phosphatase (45-117) U/L Troponin I (0-0.045) ng/ml Total Protein (6.4-8.2) gm/dl Albumin (3.4-5.0) gm/dl Globulin (2.5-4.0) gm/dl Albumin/Globulin Ratio (0.9-2) Lipase (73-393) U/L TSH (0.300-4.500) uIu/ml Urine Color Yellow Urine Appearance Clear (Clear) Urine pH 6.0 (4.5-7.5) Ur Specific [place] 1.025 (1.000-1.030) Urine Protein 2+ H (Negative) Urine Glucose (UA) Trace H (Negative) Urine Ketones Negative (Negative) Urine Blood 2+ H (Negative) Urine Nitrite Negative (Negative) Urine Bilirubin Negative (Negative) Urine Urobilinogen Negative (Negative) Ur Leukocyte Esterase Negative (Negative) Urine RBC 10-30 H (0-4) /hpf Urine WBC 10-30 H (0-5) /hpf Ur Epithelial Cells 5-10 H (0-5) /lpf Urine Bacteria 1+ H (Negative) COVID-19 Eval Order Covid19 at [facility] SARS-CoV-2 (PCR) (Negative) 08/13/20 Range/Units 19:50 WBC (4.8-10.8) K/uL RBC (4.7-6.1) M/uL Hgb (14.0-18.0) g/dL Hct (42-52) % MCV (80-100) fL MCH (25-34) pg MCHC (32-36) g/dL RDW Std Deviation (36.4-46.3) fL RDW Coeff of Idalia (11.5-14.5) % Plt Count (130-400) K/uL MPV (7.4-10.4) fL Immature Gran % (Auto) % Neut % (Auto) % Lymph % (Auto) % Ferry % (Auto) % Eos % (Auto) % Baso % (Auto) % Neut # (Auto) (1.4-6.5) K/uL Lymph # (Auto) (1.2-3.4) K/uL Ferry # (Auto) (0.11-0.59) K/uL Eos # (Auto) (0-0.5) K/uL Baso # (Auto) (0-0.2) K/uL Immature Gran # (Auto) (0.00-0.02) K/uL Macrocytosis Stomatocytes PT (9.0-12.0) Seconds INR (0.9-1.1) APTT (21.0-31.0) Seconds PTT Ratio Sodium (136-145) mmol/L Potassium (3.5-5.1) mmol/L Chloride (98-107) mmol/L Carbon Dioxide (21-32) mmol/L Anion Gap (3-11) BUN (7-18) mg/dl Creatinine (0.6-1.4) mg/dl Est Cr Clr Drug Dosing ml/min Est GFR ( Amer) ml/min Est GFR (Non-Af Amer) ml/min BUN/Creatinine Ratio (10-20) Glucose (70-99) mg/dl Calcium (8.5-10.1) mg/dl Magnesium (1.8-2.4) mg/dl Total Bilirubin (0.2-1) mg/dl AST (15-37) U/L ALT (12-78) U/L Alkaline Phosphatase (45-117) U/L Troponin I (0-0.045) ng/ml Total Protein (6.4-8.2) gm/dl Albumin (3.4-5.0) gm/dl Globulin (2.5-4.0) gm/dl Albumin/Globulin Ratio (0.9-2) Lipase (73-393) U/L TSH (0.300-4.500) uIu/ml Urine Color Urine Appearance (Clear) Urine pH (4.5-7.5) Ur Specific [place] (1.000-1.030) Urine Protein (Negative) Urine Glucose (UA) (Negative) Urine Ketones (Negative) Urine Blood (Negative) Urine Nitrite (Negative) Urine Bilirubin (Negative) Urine Urobilinogen (Negative) Ur Leukocyte Esterase (Negative) Urine RBC (0-4) /hpf Urine WBC (0-5) /hpf Ur Epithelial Cells (0-5) /lpf Urine Bacteria (Negative) COVID-19 Eval Order SARS-CoV-2 (PCR) NEGATIVE (Negative) Administered Medications Discontinued Medications Hydrocortisone Sodium Succinate (Hydrocortisone Sod Succinate 100 Mg/2 Ml Vial) 100 mg IV NOW STA Stop: 08/13/20 19:43 Last Admin: 08/13/20 20:14 Dose: 100 mg Documented by: [id number] Sodium Chloride (Nss) 500 mls @ 999 mls/hr IV .Q31M STA Stop: 08/13/20 19:36 Last Infusion: 08/13/20 20:21 Dose: 0 mls/hr Documented by: [id number] Admin: 08/13/20 19:20 Dose: 999 mls/hr Documented by: [id number] Norepinephrine Bitartrate (Levophed/D5w) 8 mg in 508 mls @ 81.686 mls/hr IV .Q6H14M MELANI; Protocol Stop: 09/12/20 19:09 Last Titration: 08/13/20 20:30 Dose: 0.4 mcg/kg/min, 81.7 mls/hr Documented by: [id number] Titration: 08/13/20 20:21 Dose: 0.3 mcg/kg/min, 61.3 mls/hr Documented by: [id number] Titration: 08/13/20 20:12 Dose: 0.2 mcg/kg/min, 40.8 mls/hr Documented by: [id number] Admin: 08/13/20 19:21 Dose: 0.1 mcg/kg/min, 20.4 mls/hr Documented by: [id number] Cosigned by: [id number] Vasopressin 20 units/ Sodium (Chloride) 101 mls @ 12.12 mls/hr IV .Q8H20M MELANI Stop: 09/12/20 22:44 Last Admin: 08/13/20 23:42 Dose: Not Given Documented by: [id number] Norepinephrine Bitartrate (Levophed/D5w) 8 mg in 508 mls @ 10.211 mls/hr IV .Q24H MELANI; Protocol Stop: 09/12/20 22:18 Last Admin: 08/13/20 23:41 Dose: Not Given Documented by: [id number] Lactated Ringer's (Lr) 1,000 mls @ 125 mls/hr IV .Q8H MELANI Stop: 08/14/20 14:18 Last Admin: 08/13/20 23:41 Dose: Not Given Documented by: [id number] Lorazepam (Ativan) 0.5 mg in 1 mls @ 1 mls/min IV Q4H PRN PRN Reason: Anxiety/Agitation Stop: 09/12/20 23:05 Last Admin: 08/13/20 23:23 Dose: 1 mls/min Documented by: [id number] Morphine Sulfate (Morphine Sulf/Sw) 240 mg in 240 mls @ 1 mls/hr IV .Q96H MELANI; Protocol Stop: 08/27/20 23:14 Last Titration: 08/13/20 23:43 Dose: 3 mg/hr, 3 mls/hr Documented by: [id number] Cosigned by: [id number] Titration: 08/13/20 23:33 Dose: 2 mg/hr, 2 mls/hr Documented by: [id number] Cosigned by: [id number] Admin: 08/13/20 23:23 Dose: 1 mg/hr, 1 mls/hr Documented by: [id number] Cosigned by: [id number] Lorazepam (Lorazepam 2 Mg/4 Ml Vial) Confirm Administered Dose 2 mg .ROUTE .STK- MED ONE Stop: 08/13/20 23:21 Last Admin: 08/13/20 23:42 Dose: Not Given Documented by: [id number] Miscellaneous (Stat Iv Infusion Titration Per Protocol) 1 ea N/A NOW STA Stop: 08/13/20 20:03 Last Admin: 08/13/20 23:41 Dose: Not Given Documented by: [id number] Miscellaneous (Stat Iv Infusion Titration Per Protocol) 1 ea N/A NOW STA Stop: 08/13/20 23:07 Last Admin: 08/13/20 23:18 Dose: 1 ea Documented by: [id number] Morphine Sulfate (Morphine Sulf/Sw 1 Mg/Ml 240 Ml Btl) Confirm Administered Dose 240 mg IV .STK-MED ONE Stop: 08/13/20 23:15 Last Admin: 08/13/20 23:42 Dose: Not Given Documented by: [id number] Norepinephrine Bitartrate (Norepinephrine/D5w 8 Mg/508 Ml) Confirm Administered Dose 8 mg IV .[employer] ONE Stop: 08/13/20 19:08 Last Admin: 08/13/20 19:21 Dose: 8 mg Documented by: [id number] Imaging Data Radiologist's Impression: Chest X-Ray 08/13/20 19:07 SINGLE VIEW CHEST CLINICAL HISTORY: Atypical chest pain. FINDINGS: An AP, portable, supine chest radiograph is compared to study dated 07/24/2020 and correlated with chest CT dated 06/07/2013. An endotracheal tube has been placed. The tip projects 6 cm above the elizabeth. A cardiac pad projects over the right apex. The heart is top normal for projection noting atherosclerotic calcification of the thoracic aorta. The pulmonary vasculature is noncongested. Enlargement of the central pulmonary arteries suggests pulmonary artery hypertension. Emphysema and chronic interstitial thickening is similar to pre vious. Patchy airspace opacities are noted in the right midlung. No large pleural effusion or pneumothorax is seen. The skeletal structures are osteopenic. The bony thorax is grossly intact. IMPRESSION: 1. An endotracheal tube has been placed as above. 2. Advanced emphysema 3. Airspace opacities are noted in the right midlung. Correlate clinically for evidence of a mild infectious/inflammatory pneumonitis. Radiographic follow-up to resolution is recommended. ACT 112: Negative or not required by law. Electronically signed by: Pratik Song M.D. 08/13/2020 8:24 PM Discharge Plan Visit Data Chief Complaint: Cardiac Arrest/CPR Stated Complaint: POST CARDIAC ARREST ED Provider: Pratik Muller Discharge Problem: Cardiac arrest, Rapid atrial fibrillation, Hypotension, Acidosis Patient Disposition: Admitted As Inpatient Condition: Critical Discharge Instructions Interventions: ED Discharge Assessment Last Done: 08/13/20 21:55 Discharge Problem: Hypotension Qualifiers: Hypotension type: unspecified hypotension type Qualified Code(s): I95.9 - Hypotension, unspecified
[2020-08-13 21:57] LABS: Hemoglobin 11.2 g/dL (14.0-18.0); Mean Corpuscular Hemoglobin 33.7 pg (25-34); Mean Corpuscular Volume 120.5 fL (80-100); Mean Platelet Volume 10.1 fL (7.4-10.4); Platelet Count 244 K/uL (130-400); RDW Coefficient of Variation 13.2 % (11.5-14.5); RDW Standard Deviation 57.7 fL (36.4-46.3); Red Blood Count 3.32 M/uL (4.7-6.1)
[2020-08-13 22:05] LABS: Basophils # (auto) 0.01 K/uL (0-0.2); Basophils % (auto) 0.2 %; Eosinophils # (auto) 0.02 K/uL (0-0.5); Eosinophils % (auto) 0.3 %; Immature Granulocytes # (auto) 0.11 K/uL (0.00-0.02); Immature Granulocytes % (auto) 1.8 %; Lymphocytes # (auto) 0.55 K/uL (1.2-3.4); Lymphocytes % (auto) 9.2 %; Macrocytosis Present; Monocytes # (auto) 0.19 K/uL (0.11-0.59); Monocytes % (auto) 3.2 %; Neutrophils # (auto) 5.12 K/uL (1.4-6.5); Neutrophils % (auto) 85.3 %; Stomatocytes 2+
[2020-08-13] MEDS ORDERED: ICU PROTOCOL FOR HYPERGLYCEMIA PRN (22:19)
[2020-08-13] MEDS ORDERED: LACTATED RINGER'S 1,000 ML IV SCH (22:19)
[2020-08-13] MEDS ORDERED: VASOPRESSIN 20 UNITS in 0.9 % SODIUM CHLORIDE 100 ML IV SCH (22:45)
[2020-08-13] MEDS ORDERED: ONDANSETRON INJ 2 MG/ML 2 ML VIAL IV PRN (23:06)
[2020-08-13] MEDS ORDERED: LORazepam 0.5 MG/1 ML VIAL IV PRN (23:06)
[2020-08-13] MEDS ORDERED: ONDANSETRON 4 MG OD TAB SL PRN (23:06)
--- NOTE | 2020-08-13 23:07 | Critical Care Consultation ---
Date of Consultation August 13, 2020 Assessment & Plan (1) Admitted to intensive care unit: Reason Critically Ill: 70-year-old male who is status post cardiac arrest with ROSC with unknown downtime. Intubated and unresponsive to painful stimuli. Pupils fixed bilaterally. No purposeful movements. Family wishing to proceed with comfort measures. Patient is an unfortunate 70-year-old male with a significant past medical history of COPD, cor pulmonale, and chronic hypoxic respiratory failure on home O2. Patient arrested with unknown downtime earlier today. He received resuscitation for an unknown amount of time. He received 2 A of epinephrine with return of spontaneous circulation. He was intubated in the emergency department. Patient is had no purposeful movements. He has not been sedated status post intubation. He does not withdraw to painful stimuli. He has no purposeful movements. His pupils are fixed bilaterally. Prior to my assessment, hospitalist did speak with family and they are leaning towards comfort measures when additional family arrived at bedside. I did have a discussion with patient's as well as children. They all expressed that patient was adamantly a DNR/DNI prior to this event. They did ask about hospital course including what would transpire and what he would require during hospitalization. After discussing likely need for days of ventilator support as well as lengthy inpatient stay and possibly even senior care/LTAC facility after extubation if possible, family is adamant that he would not wish to even be intubated at this point. Patient's daughter is a nurse. She states that she would not wish for him to continue with any further aggressive measures at this time. Additionally, we did discuss the possibility of anoxic insult given his substantial downtime. All family members and significant other are in agreement that they would wish to pursue comfort measures only at this time. There is a daughter who is traveling from [place]. They would wish to compassionately extubate when she arrives and is able to see her father. Goals of care at this point will be to maintain Levophed to maintain pressures until the patient's daughter is able to arrive at bedside. At this point, we will discontinue all supportive medications including vasopressors and start the patient on a morphine drip prior to extubation. This was discussed at great length with the family and they are all in agreement. No further imaging studies, lab works, etc. will be obtained at this time in an effort to reduce patient discomfort. I have personally spent 32 minutes of critical care time in the direct management of this patient. This is a life/limb threatening event. This includes time spent evaluating patient, direct bedside care, chart review, placing orders, interpretation of diagnostic studies, discussion with consultants, luis f escamilla, and family members, as well as other required patient management activities. This time is exclusive of all separately billable procedures, and teaching time and separate from and in addition to any other critical care service time. Thank you for allowing us to participate in the care of this patient. Please refer to my attending physician's documentation for any further recommendations. (2) Cardiac arrest: (3) Chronic obstructive pulmonary disease: (4) Cor pulmonale: (5) Secondary pulmonary hypertension: History of Present Illness Attending Physician: Linda Alcocer DO History of Present Illness Patient is a 70-year-old male with a significant past medical history of COPD, chronic respiratory failure on chronic home O2, and cor pulmonale. Patient was found unresponsive and pulseless at home. Apparently, his had left to go grocery shopping and when she returned he was found on the ground. Per documentation, police arrived and began CPR. Patient was in a PEA rhythm and no shock was advised. The patient received 2 doses of epinephrine upon EMS arrival. Circulation was regained. Patient was bolused with saline and upon arrival to the ED he was intubated and subsequently placed on Levophed for blood pressure support. Upon discussion with the family at bedside, they report that he has declined greatly over the last several days. There report that he has essentially not been eating recently. He is lost a substantial amount of weight. Per discussion with hospitalist team, family had indicated that they would wish to pursue comfort measures when additional family arrives. We did discuss events as well as chronicity of illness and likelihood of lengthy hospital stay as well as likely need for placement post discharge. Family is adamant that he would not wish for any of this and would wish to pursue with compassionate extubation. Allergies Allergy/AdvReac Type Severity Reaction Status Date / Time No Known Allergies Allergy Verified 08/13/20 19:14 Home Medications Medication Instructions Recorded Confirmed Type Oxygen Home #1 ea 10/19/18 08/01/20 History budesonide-formoterol HFA 160 2 puffs INHALATION BID #2 gm 10/19/18 08/13/20 History mcg-4.5 mcg/actuation aerosol inhaler folic acid 1 mg tablet 1 mg PO DAILY tab 10/19/18 08/13/20 History multivitamin 1 tab PO DAILY 10/19/18 08/13/20 History thiamine HCl (vitamin B1) 100 mg 100 mg PO DAILY tab 10/19/18 08/13/20 History tablet tiotropium bromide 18 mcg capsule See Rx Instructions .ROUTE 10/17/19 08/13/20 Rx with inhalation device .COMPLEX #90 puffs albuterol sulfate 90 mcg/actuation 2 inh INH Q6H PRN #3 inhaler 01/10/20 08/13/20 Rx aerosol inhaler hydrochlorothiazide 12.5 mg tablet 12.5 mg PO DAILY #90 tab 01/15/20 08/13/20 Rx prednisone 10 mg tablet 10 mg PO .COMPLEX #50 tab 07/24/20 08/13/20 Rx aspirin 81 mg PO DAILY 08/13/20 08/13/20 History Patient History Medical History (Updated 08/14/20 @ 00:58 by Shay Webster PA-C) BPH (benign prostatic hyperplasia) Chronic obstructive pulmonary disease Cor pulmonale Hypoxia Secondary pulmonary hypertension Family History Mother Cancer Brother Prostate cancer Social History Smoking Status: Former smoker Cigarettes Per Day: 20; Smoking End Date: 2015; Second Hand Exposure: No; Hx Alcohol Use: No Hx Substance Use: No Preferred Language: Malay Communication Ability: Effective Mobile Sales Assistant Required: No Beliefs That Will Affect Care: None marital status: Current Living Situation: Spouse current occupational status: employed Feels Safe at Home: Declines to Answer Assistive Devices: Oxygen - Continuous Review of Systems Review of Systems: Unobtainable due to endotracheal tube and Unobtainable due to reduced consciousness Physical Exam Physical Exam: VITAL SIGNS - Vital signs and nursing notes were reviewed. GENERAL - 70-year-old male appearing older than his stated age who is intubated and sedated. Thin and frail appearing. HEAD - NC/AT. EYES - Pupils fixed and equal bilaterally. EARS - No deformities of external structures noted on gross examination bilaterally. NOSE - Midline and without cyanosis. MOUTH/OROPHARYNX - ET Tube in place. Without perioral cyanosis. NECK - Supple to palpation. LUNGS - Diminished breath sounds. CARDIAC - RRR with S1/S2. No murmur, rubs, or gallops appreciated. ABDOMEN - Abdominal contour scaphoid without pulsations or visible masses. Hypoactive bowel sounds. EXTREMITIES - No clubbing or peripheral cyanosis. No pretibial edema present. NEUROLOGIC - Not currently requiring sedation. Pupils fixed bilaterally. Not responsive to painful stimuli. No purposeful movements. Results & Data Results & Data ([facility]) Vital Signs (Past 12 Hours) Vital Signs Temp Pulse Pulse Resp BP BP Pulse Ox 08/13/20 22:23 35.5 C L 155 H 20 99/70 L 94 08/13/20 21:30 137 H 85/64 L 86 L 08/13/20 21:25 135 H 92/63 L 89 L 08/13/20 21:20 131 H 107/60 84 L 08/13/20 21:15 137 H 94/61 L 88 L 08/13/20 21:10 128 H 98/61 L 92 08/13/20 21:05 122 H 95/63 L 95 08/13/20 21:00 128 H 97/65 L 95 08/13/20 20:56 127 H 88/41 L 98 08/13/20 20:50 121 H 98/61 L 91 08/13/20 20:45 120 H 92/58 L 89 L 08/13/20 20:40 116 H 86/63 L 90 08/13/20 20:36 118 H 91/54 L 89 L 08/13/20 20:30 127 H 80/61 L 85 L 08/13/20 20:27 127 H 70/43 L 87 L 08/13/20 20:20 127 H 91 08/13/20 20:15 127 H 71/49 L 84 L 08/13/20 20:11 119 H 72/49 L 97 08/13/20 20:10 120 H 94 08/13/20 20:05 120 H 76/56 L 95 08/13/20 20:00 129 H 80/53 L 95 08/13/20 19:55 120 H 78/52 L 98 08/13/20 19:50 128 H 77/46 L 95 08/13/20 19:45 117 H 81/51 L 93 08/13/20 19:40 127 H 84/67 L 94 08/13/20 19:36 34.5 C L 126 H 91/48 L 95 08/13/20 19:31 113 H 82/55 L 92 08/13/20 19:30 112 H 92 08/13/20 19:25 116 H 08/13/20 19:22 34.5 C L 110 H 100 08/13/20 19:20 115 H 71/55 L 08/13/20 19:16 123 H 42/20 L 100 08/13/20 19:15 108 H 99 08/13/20 19:10 139 H 67/42 L 100 08/13/20 19:06 127 H 21 59/37 L 100 08/13/20 19:04 130 H 18 128/103 H Coding Level of Care Code Critical Care 1st 30-74 mins Diagnoses Admitted to intensive care unit Z78.9 Cardiac arrest I46.9 Chronic obstructive pulmonary disease J44.9 Cor pulmonale I27.81 Secondary pulmonary hypertension Time Spent (min) 32
[2020-08-13] MEDS ORDERED: [UNRECOGNIZED DRUG - OTHER] IV ONE (23:14)
[2020-08-13] MEDS ORDERED: WATER IV ONE (23:14)
[2020-08-13] MEDS ORDERED: MoRPHine SULF/SW 240 MG/240 ML BTL IV SCH (23:15)
[2020-08-13] MEDS ORDERED: LORazepam 2 MG/4 ML VIAL ONE (23:20)
--- NOTE | 2020-08-14 00:18 | Death Pronouncement Note ---
Date of Service August 14, 2020 Pronouncement Note Admission Date Admission Date: August 13, 2020 Date and Time of Date of : 08/14/20 Time of : 00:09 PCOD Preliminary cause of : Respiratory failure Hospital Course Hospital Course: Patient admitted to this facility status post cardiac arrest with ROSC and unknown downtime. Patient was intubated and required substantial amounts of pressors. Patient not requiring sedation. Great concern for anoxic injury. In discussion with family, they are requesting to proceed with more comfort gear care at this point. Patient was terminally extubated at the request of family upon arrival of all family members. Additional Data Confirmation of : no pulse, no respirations, no heart sounds and pupils fixed and dilated Family: at bedside Attending/PCP notified?: No Attending physician: Linda Alcocer, DO Was code activated?: No Autopsy requested?: No test examiner notified?: Yes Organ bank notified?: Yes Advance directives: No Coding Level of Care Code None Time Spent (min) 25
[2020-08-14] MEDS ORDERED: HYDROCORTISONE SOD 100 MG in SYRINGE 0 ML IV SCH (04:00)
[2020-08-14] MEDS ORDERED: PANTOprazole 40 MG TAB PO SCH (09:00)
[2020-08-14 10:20] LABS: iSTAT Arterial Blood Gas pCO2 85 mmHg (35-46); iSTAT Arterial Blood Gas pH 7.33 (7.35-7.45); iSTAT Hematocrit 35 % (42-52); iSTAT Hemoglobin 11.9 g/dl (14.0-18.0); iSTAT Potassium 4.4 mmol/L (3.3-5.0); iSTAT Sodium 144 mmol/L (135-144)
[2020-08-14 10:21] LABS: iSTAT Arterial Blood Gas HCO3 45 meg/L (19-24); iSTAT Arterial Blood Gas pO2 477 mmHg (80-95); iSTAT Carbon Dioxide 48 mmol/L (24-31); iSTAT Sample Type Arterial
--- NOTE | 2020-08-14 12:47 | Electrocardiogram Report ---
Test Reason : Blood Pressure : / mmHG Vent. Rate : 126 BPM Atrial Rate : 110 BPM P-R Int : 000 ms QRS Dur : 090 ms QT Int : 324 ms P-R-T Axes : 000 089 081 degrees QTc Int : 469 ms Atrial fibrillation with rapid ventricular response with premature ventricular or aberrantly conducte d complexes Abnormal ECG When compared with ECG of 10-APR-2017 18:08, Atrial fibrillation has replaced Sinus rhythm Confirmed by Landon Gomez ([id number]) on 08/14/2020 12:47:26 PM Referred By: REFERRED SELF Confirmed By:Dario Gomez
--- NOTE | 2020-08-27 20:42 | Discharge Summary ---
Date of Service August 14, 2020 Admission HPI Per Admitting Provider Sacha Zelaya is a 70yo C male with history of severe COPD on home O2, cor pulmonale and chronic CO2 retention presenting after out of hospital cardiac arrest. Patient intubated at time of encounter. History obtained through chart review, discussion with ER staff and discussion with family at bedside. states that patient has been acting somewhat strangely for the last several days. He has been a little less responsive and interactive. He is chronically short of breath due to underlying COPD but was a little more short of breath during the last several days. Patient was at home this afternoon. His left him to go shopping - states she was out of the house only 10-15 minutes. When she came home she found the patient unresponsive on the floor. He had broken glass around him. He was not breathing or responsive at that time. She called 911 - police arrived approximately 5 minutes later and started CPR. An AED was placed - rhythm was not shockable. When EMS arrived they intubated the patient, administered epinephrine x 2 doses with ROSC. Patient received 400mL of IVF prior to arrival. Upon arrival to the ER patient hemodynamically improved with systolic BP of 100. Unresponsive. Patient became hypotensive and was started on Levophed Admission Exam Per Admitting Provider General: patient intubated, no withdrawal from painful stimuli Skin: warm, dry, intact, no rashes or lesions HEENT: NC/AT, Pupils pinpoint, round and unreactive, anicteric sclera, conjunctiva without injection, external ear normal to inspection, nares patent, moist mucus membranes, dentition intact, ETT in place, trachea midline, no LAD, no thyromegaly, no JVD Heart: +S1/S2, regular, tachycardic, no m/r/g Lungs: equal air entry bilaterally, no rales/rhonchi/wheezes Abd: +BS, soft, ND, no masses/organomegaly/ascites Ext: warm, 2+ pulses in UE/LE bilaterally, no clubbing/cyanosis or edema Neuro: intubated, no eye opening, no verbal response, no withdrawal from painful stimuli - GCS 3T at this time Principal Diagnosis Cardiac Arrest Discharge Data Allergies Allergy/AdvReac Type Severity Reaction Status Date / Time No Known Allergies Allergy Verified 08/13/20 19:14 Consultations 08/13/20 20:01 ED Decision to Admit Stat 08/13/20 22:19 Consult Insurance Claims Examiner Routine 08/13/20 23:06 Consult Palliative Care Routine Hospital Course (1) Cardiac arrest: Hospital Course: Patient admitted to this facility status post cardiac arrest with ROSC and unknown downtime. Patient was intubated and required substantial amounts of pressors. Patient not requiring sedation. Great concern for anoxic injury. In discussion with family, they are requesting to proceed with more comfort gear care at this point. Patient was terminally extubated at the request of family upon arrival of all family members. Patient pronounced at 00:09 on 08/14/20 Total Time Total Time Spent Total Time Spent (In Minutes): 20 Discharge Plan Discharge Items Patient Disposition: Coding Level of Care Code None Diagnoses Cardiac arrest I46.9
== END 2020-08-14 00:09 | disposition expired | DRG 297 ==
LOC: ED 18:58 → 1E 20:07